=== PATIENT | female | born 1975 | race Caucasian/White ===

== ENCOUNTER 2017-10-30 13:43 | Observation (INO) ==
[2017-10-30] MEDS ORDERED: 0.9 % Sodium Chloride 500 ML IVC ONE (14:04)
[2017-10-30] MEDS ORDERED: *HR* Atropine Sulfate 1 MG/10 ML SYRINGE IVP ONE (14:06)
[2017-10-30 14:31] LABS: Basophils % 0.3 %; Eosinophils # 0.1 K/mcL (0.0-0.6); Eosinophils % 0.6 %; Hematocrit 37.8 % (35.3-44.9); Hemoglobin 11.9 g/dL (11.5-15.4); Immature Granulocytes % 0.5 % (0-4); Lymphocytes # 3.9 K/mcL (0.6-4.6); Lymphocytes % 35.7 %; Mean Corpuscular HGB Conc 31.5 g/dL (31.6-35.5); Mean Corpuscular Hemoglobin 25.5 pg (28.0-33.3); Mean Corpuscular Volume 80.9 fL (83.0-100.0); Mean Platelet Volume 10.3 fL (9.4-12.4); Monocytes # 0.9 K/mcL (0.0-1.3); Monocytes % 8.1 %; Platelet Count 314 K/mcL (140-400); Red Blood Count 4.67 M/mcL (3.82-4.97); Red Cell Distribution Width 19.2 % (11.5-14.5); Segmented Neutrophils % 54.8 %
--- NOTE | 2017-10-30 14:32 | Emergency Department Note ---
Disposition Clinical Impression: Symptomatic bradycardia Disposition: Admitted As Inpatient Condition: Good Chest Pain HPI - General Chief Complaint: ED Chest Pain Stated Complaint: CP x 4 days, Black stool Time Seen by Provider: 10/30/17 13:58 Source: patient Mode of arrival: private vehicle Limitations: no limitations Vital Signs Reviewed: Yes Nursing Notes Reviewed: Yes - History of Present Illness HPI Narrative: 42-year-old female history of fibromyalgia, hypothyroidism who presents to the ER with 4 days of chest pain. Patient states intermittent chest pain the last roughly 25-30 minutes at a time. Describes it as sharp. Also reports some associated shortness of breath and generalized weakness. She states her last 2 bowel movements have been dark. She is not on any antiplatelet or anticoagulation medications. She has not noticed any bleeding from anywhere. She was seen at another ER a few days ago and told to come back if she was worse. She was noted to be bradycardic here. She states that she was told once before when she was in an ER that her heart rate was low. She says she usually runs in the 60s to 70s. No other complaints. Pt complaint: chest pain Onset (ago): day(s) Duration: intermittent Pain Location: left chest Severity scale (1-10): 10 Pain Radiation: none Improves with: nothing Worsens with: nothing Associated symptoms: Reports: nausea, dyspnea Treatments prior to arrival chest pain: none - Related Data On Oral Contraceptives: No Allergies Allergy/AdvReac Type Severity Reaction Status Date / Time oseltamivir [From Tamiflu] Allergy Hallucinati Verified 10/30/17 17:35 ng All systems ED: reviewed and negative except as stated. Cardiovascular: Reports: chest pain Respiratory: Reports: dyspnea Gastrointestinal: Reports: abdominal pain, nausea, constipation. Denies: vomiting, diarrhea Physical Exam - General Limitations: no limitations General appearance: alert, in no apparent distress - Head Head exam: atraumatic, normocephalic - Eye Eye exam: Present: normal appearance - ENT ENT exam: normal exam - Neck Neck exam: Present: normal inspection - Chest Chest inspection: Present: normal inspection, symmetric chest wall rise - Respiratory Respiratory exam: Present: normal lung sounds bilaterally - Cardiovascular Cardiovascular exam: Present: normal rhythm, bradycardia, normal heart sounds - Abdominal Exam Abdominal exam: Present: soft, Non-Tender. Absent: tenderness, distention, rigidity - Extremities Exam Extremities exam: Present: normal inspection, full ROM - Expanded Upper Extremity Exam Shoulder exam: Present: normal inspection, full ROM Arm exam: Present: normal inspection, full ROM Elbow exam: Present: normal inspection, full ROM Forearm/Wrist exam: Present: normal inspection, full ROM Hand exam: Present: normal inspection, full ROM - Expanded Lower Extremity Exam Hip/Pelvis exam: Present: normal inspection, full ROM Upper leg exam: Present: normal inspection, full ROM Knee exam: Present: normal inspection, full ROM Lower leg exam: Present: normal inspection, full ROM Ankle exam: Present: normal inspection, full ROM Foot/toe exam: Present: normal inspection, full ROM - Skin Skin exam: Present: warm, dry Course Course Narrative: Patient seen and examined. Vital signs reviewed. Plan for EKG, chest x-ray, labs, urinalysis. Patient to be given atropine for her bradycardia in lieu of her symptoms. - Reevaluation(s) Reevaluation #1: Patient was given 0.5 mg of atropine for bradycardia. Improved with her rate into the 50s. Reevaluation #2: Discussed findings with patient. Agreeable with admission. Vital Signs Temperature 97.6 F 10/30/17 13:48 Pulse Rate 44 10/30/17 13:48 Respiratory Rate 12 10/30/17 13:48 O2 Sat by Pulse Oximetry 99 10/30/17 13:48 Temperature 97.7 F 10/30/17 19:35 Pulse Rate 49 10/30/17 19:35 Respiratory Rate 18 10/30/17 19:35 Blood Pressure 116/72 10/30/17 19:35 O2 Sat by Pulse Oximetry 99 10/30/17 19:35 Oxygen Delivery Oxygen Delivery Room Air Chest Pain - [facility] Narrative Medical decision making narrative: 42-year-old female presents with chest pain intermittently for 4 days as well as generalized weakness and shortness of breath. She is noted to be bradycardic here with a stable blood pressure. She believes this is only the second and since that she has been told her heart rate is slow. She is sinus bradycardia on EKG. Labs are grossly unremarkable. Patient given atropine for symptomatic bradycardia. Admitted for chest pain as well as symptomatic bradycardia. - Lab Data Lab results reviewed: Yes I reviewed the patient's lab results. Result diagrams: 10/30/17 14:14 10/30/17 14:14 Lab Results 10/30/17 10/30/17 10/30/17 Range/Units 14:04 14:05 14:05 WBC (4.3-11.1) K/mcL RBC (3.82-4.97) M/mcL Hgb (11.5-15.4) g/dL Hct (35.3-44.9) % MCV (83.0-100.0) fL MCH (28.0-33.3) pg MCHC (31.6-35.5) g/dL RDW (11.5-14.5) % Plt Count (140-400) K/mcL MPV (9.4-12.4) fL Immature Gran % (0-4) % Seg Neutrophils % % Lymphocytes % % Monocytes % % Eosinophils % % Basophils % % Neutrophils # (1.6-8.9) K/mcL Lymphocytes # (0.6-4.6) K/mcL Monocytes # (0.0-1.3) K/mcL Eosinophils # (0.0-0.6) K/mcL Basophils # (0.0-0.2) K/mcL PT 10.3 (9.4-12.1) Seconds INR 0.9 APTT 28.0 (26.0-36.0) Seconds Sodium (136-145) mEq/L Potassium (3.5-5.1) mEq/L Chloride (98-107) mEq/L Carbon Dioxide (23-29) mEq/L BUN (6-20) mg/dL Creatinine (0.60-1.20) mg/dL Est GFR ( Amer) (> 60) Est GFR (Non-Af Amer) (> 60) BUN/Creatinine Ratio (6-26) Glucose (70-105) mg/dL Calculated Osmolality (280-300) Calcium (8.6-10.3) mg/dL Phosphorus (2.7-4.5) mg/dL Magnesium (1.6-2.6) mg/dL Total Bilirubin 0.2 L (0.3-1.0) mg/dL Direct Bilirubin 0.1 (0.0-0.2) mg/dL Indirect Bilirubin 0.1 (0.0-1.2) mg/dL AST 10 L (13-39) Units/L ALT 9 (7-52) Units/L Alkaline Phosphatase 65 (34-104) Units/L Troponin I (< 0.04) ng/mL B-Natriuretic Peptide 50 (Less than 100) pg/mL Serum Total Protein 6.1 L (6.4-8.9) g/dL Albumin 3.7 (3.5-5.7) g/dL Globulin 2.4 (2.4-3.5) g/dL Albumin/Globulin Ratio 1.5 (1.1-2.2) TSH 5.157 (0.340-5.600) mcIU/mL Free T4 (0.70-2.00) ng/dl Urine Color (Yellow) Urine Clarity (Clear) Urine pH (5.0-8.0) pH Units Ur Specific Eleele (1.010-1.025) Urine Protein (Neg-Trace) mg/dL Urine Glucose (UA) (Normal) mg/dL Urine Ketones (Negative) mg/dL Urine Blood (Negative) Urine Nitrite (Negative) Urine Bilirubin (Negative) Urine Urobilinogen (Normal) mg/dL Ur Leukocyte Esterase (Negative) Ur Culture Indicated? (NO) Urine Test (Negative) 10/30/17 10/30/17 10/30/17 Range/Units 14:14 14:14 15:46 WBC 10.9 (4.3-11.1) K/mcL RBC 4.67 (3.82-4.97) M/mcL Hgb 11.9 (11.5-15.4) g/dL Hct 37.8 (35.3-44.9) % MCV 80.9 L (83.0-100.0) fL MCH 25.5 L (28.0-33.3) pg MCHC 31.5 L (31.6-35.5) g/dL RDW 19.2 H (11.5-14.5) % Plt Count 314 (140-400) K/mcL MPV 10.3 (9.4-12.4) fL Immature Gran % 0.5 (0-4) % Seg Neutrophils % 54.8 % Lymphocytes % 35.7 % Monocytes % 8.1 % Eosinophils % 0.6 % Basophils % 0.3 % Neutrophils # 6.0 (1.6-8.9) K/mcL Lymphocytes # 3.9 (0.6-4.6) K/mcL Monocytes # 0.9 (0.0-1.3) K/mcL Eosinophils # 0.1 (0.0-0.6) K/mcL Basophils # 0.0 (0.0-0.2) K/mcL PT (9.4-12.1) Seconds INR APTT (26.0-36.0) Seconds Sodium 134 L (136-145) mEq/L Potassium 4.0 (3.5-5.1) mEq/L Chloride 102 (98-107) mEq/L Carbon Dioxide 26 (23-29) mEq/L BUN 12 (6-20) mg/dL Creatinine 0.71 (0.60-1.20) mg/dL Est GFR ( Amer) > 60 (> 60) Est GFR (Non-Af Amer) > 60 (> 60) BUN/Creatinine Ratio 17 (6-26) Glucose 156 H (70-105) mg/dL Calculated Osmolality 281 (280-300) Calcium 9.3 (8.6-10.3) mg/dL Phosphorus 3.0 (2.7-4.5) mg/dL Magnesium 2.0 (1.6-2.6) mg/dL Total Bilirubin (0.3-1.0) mg/dL Direct Bilirubin (0.0-0.2) mg/dL Indirect Bilirubin (0.0-1.2) mg/dL AST (13-39) Units/L ALT (7-52) Units/L Alkaline Phosphatase (34-104) Units/L Troponin I < 0.03 (< 0.04) ng/mL B-Natriuretic Peptide (Less than 100) pg/mL Serum Total Protein (6.4-8.9) g/dL Albumin (3.5-5.7) g/dL Globulin (2.4-3.5) g/dL Albumin/Globulin Ratio (1.1-2.2) TSH (0.340-5.600) mcIU/mL Free T4 0.85 (0.70-2.00) ng/dl Urine Color (Yellow) Urine Clarity (Clear) Urine pH (5.0-8.0) pH Units Ur Specific Eleele (1.010-1.025) Urine Protein (Neg-Trace) mg/dL Urine Glucose (UA) (Normal) mg/dL Urine Ketones (Negative) mg/dL Urine Blood (Negative) Urine Nitrite (Negative) Urine Bilirubin (Negative) Urine Urobilinogen (Normal) mg/dL Ur Leukocyte Esterase (Negative) Ur Culture Indicated? (NO) Urine Test Negative (Negative) 10/30/17 Range/Units 15:52 WBC (4.3-11.1) K/mcL RBC (3.82-4.97) M/mcL Hgb (11.5-15.4) g/dL Hct (35.3-44.9) % MCV (83.0-100.0) fL MCH (28.0-33.3) pg MCHC (31.6-35.5) g/dL RDW (11.5-14.5) % Plt Count (140-400) K/mcL MPV (9.4-12.4) fL Immature Gran % (0-4) % Seg Neutrophils % % Lymphocytes % % Monocytes % % Eosinophils % % Basophils % % Neutrophils # (1.6-8.9) K/mcL Lymphocytes # (0.6-4.6) K/mcL Monocytes # (0.0-1.3) K/mcL Eosinophils # (0.0-0.6) K/mcL Basophils # (0.0-0.2) K/mcL PT (9.4-12.1) Seconds INR APTT (26.0-36.0) Seconds Sodium (136-145) mEq/L Potassium (3.5-5.1) mEq/L Chloride (98-107) mEq/L Carbon Dioxide (23-29) mEq/L BUN (6-20) mg/dL Creatinine (0.60-1.20) mg/dL Est GFR ( Amer) (> 60) Est GFR (Non-Af Amer) (> 60) BUN/Creatinine Ratio (6-26) Glucose (70-105) mg/dL Calculated Osmolality (280-300) Calcium (8.6-10.3) mg/dL Phosphorus (2.7-4.5) mg/dL Magnesium (1.6-2.6) mg/dL Total Bilirubin (0.3-1.0) mg/dL Direct Bilirubin (0.0-0.2) mg/dL Indirect Bilirubin (0.0-1.2) mg/dL AST (13-39) Units/L ALT (7-52) Units/L Alkaline Phosphatase (34-104) Units/L Troponin I (< 0.04) ng/mL B-Natriuretic Peptide (Less than 100) pg/mL Serum Total Protein (6.4-8.9) g/dL Albumin (3.5-5.7) g/dL Globulin (2.4-3.5) g/dL Albumin/Globulin Ratio (1.1-2.2) TSH (0.340-5.600) mcIU/mL Free T4 (0.70-2.00) ng/dl Urine Color Yellow (Yellow) Urine Clarity Clear (Clear) Urine pH 6.5 (5.0-8.0) pH Units Ur Specific Eleele < 1.005 L (1.010-1.025) Urine Protein Negative (Neg-Trace) mg/dL Urine Glucose (UA) Normal (Normal) mg/dL Urine Ketones Negative (Negative) mg/dL Urine Blood Negative (Negative) Urine Nitrite Negative (Negative) Urine Bilirubin Negative (Negative) Urine Urobilinogen Normal (Normal) mg/dL Ur Leukocyte Esterase Negative (Negative) Ur Culture Indicated? NO (NO) Urine Test (Negative) - Radiology Data Radiology results reviewed: Yes I reviewed the patient's radiology results. Chest X-Ray 10/30/17 14:04 IMPRESSION: No acute process. D/ / Jalil Lawrence MD / Jalil Lawrence MD Interpreting Provider: Jalil Lawrence MD - EKG Data EKG attestation: Yes I reviewed and interpreted this EKG. EKG results narrative: EKG demonstrates sinus bradycardia with a rate of 41 beats or minute. Normal axis. Normal intervals. Normal R-wave progression. No gross ST elevations or depressions. No acute ischemic findings. No significant changes from previous EKG dated 11/06/13. Heart Score - Score History: Slightly Suspicious EKG: Normal Age: Less than 45 Risk Factors: No risk factors known Troponin: Less than normal limit HEART Score Total: 0 S.B.A.R. - S.B.A.R. Situation: Demographics, MOA Background: Presenting Complaint, Relevant PMH, Meds, & Allergies Assessment: Vital Signs, Course and respsone to treatment, Exam Concerns, Patient/Family Expectation, Pertinant Lab Results Recommendation: Barrier(s) to disposition, Recommendation based on pending studies, treatments, or consults Katelin Report Given to: Dr. Ludwig Thomason Repor Time: 16:09 Attestation Statement - Attestation Attestation: I examined this patient and my medical decision-making was reviewed with the Resident Physician, Dr. Navarrete. I agree with the documented findings, disposition and treatment plan as described except to the extent set forth below. Pt is a 42 yo wf, hx hypthyroidism, with c/o CP x 4 d, intermittent with SOB and gen weakness. Patient has been having intermittent episodes without aggravating or relieving factors lasting 25-30 minutes sharp in nature. Patient arrives bradycardic and complaining of generalized weakness. I agree with patient's physical exam findings as documented. Patient was bradycardic with a stable blood pressure on arrival Patient was placed on cardiac monitoring pacer pads were placed IV was established and patient was given aspirin and a dose of atropine. Heart rate improved into the high 50s. Patient had cardiac workup initiated all of patient 's labs are within normal limits including TSH troponin chest x-rays unremarkable. Patient will be admitted for chest pain which is resolved at this time as well as symptomatic bradycardia. Case was discussed with hospitalist and sent except patient for further evaluation.
[2017-10-30 14:37] LABS: INR 0.9; Prothrombin Time 10.3 Seconds (9.4-12.1)
[2017-10-30 14:53] LABS: BUN/Creatinine Ratio 17 (6-26); Blood Urea Nitrogen 12 mg/dL (6-20); Calcium 9.3 mg/dL (8.6-10.3); Carbon Dioxide 26 mEq/L (23-29); Chloride 102 mEq/L (98-107); Glucose 156 mg/dL (70-105); Osmolality,Calculated 281 (280-300); Sodium 134 mEq/L (136-145); Troponin I < 0.03 ng/mL (< 0.04); eGFR For Non-African Americans > 60 (> 60)
[2017-10-30 14:54] LABS: Albumin 3.7 g/dL (3.5-5.7); Albumin/Globulin Ratio 1.5 (1.1-2.2); Bilirubin,Direct 0.1 mg/dL (0.0-0.2); Bilirubin,Indirect 0.1 mg/dL (0.0-1.2); Bilirubin,Total 0.2 mg/dL (0.3-1.0); Globulin 2.4 g/dL (2.4-3.5); Total Protein 6.1 g/dL (6.4-8.9)
[2017-10-30 15:06] LABS: Thyroid Stimulating Hormone 5.157 mcIU/mL (0.340-5.600)
[2017-10-30] MEDS ORDERED: Aspirin 325 MG TABLET PO ONE (15:51)
[2017-10-30 16:03] LABS: Bilirubin,Urine Negative (Negative); Blood,Urine Negative (Negative); Clarity,Urine Clear (Clear); Color,Urine Yellow (Yellow); Glucose,Urine (UA) Normal (Normal); Ketones,Urine Negative (Negative); Leukocyte Esterase,Urine Negative (Negative); Nitrite,Urine Negative (Negative); PH,Urine 6.5 pH Units (5.0-8.0); Protein,Urine Negative (Neg-Trace); Specific Gravity,Urine < 1.005 (1.010-1.025); Urobilinogen,Urine Normal (Normal)
[2017-10-30] MEDS ORDERED: Naloxone 0.4 MG/ML INJ IVP PRN ×2 (17:06→17:07)
--- NOTE | 2017-10-30 17:29 | Internal Med History&Physical ---
Date of Encounter: 10/30/17 Time of Encounter: 17:22 Internal Medicine - H&P: HPI Chief complaint: Chest pain, Black stools Admitted From: Home Plans for Post Hospital Care: Home History of present illness: Ms. Colin is a 42 year old female who is a [employer] with a past medical history of bipolar, fibromyalgia, diabetes who presents with chief complaint of chest pain and black stools. Patient states that for the past 5-6 days she has been experiencing chest pain; she describes the pain as actual abdominal pain starting in her upper mid abdomen and radiating up in between her breast. She states that she visited [facility] ER last Saturday who told her to take Motrin and to return to the doctor if symptoms continued or worsened. Patient states that she has been taking Motrin 800 mg frequently since she started developing this pain last Saturday before her 's medication. Over the past 3 days she has developed black tarry stools, however is had no bowel movement today. Patient describes her pain as intermittent and not relieved or exacerbated by any particular thing. She describes radiation up in between her breast and may have had left arm discomfort early last week but not now. She admits to nausea when she eats food and recently had a stomach flu with vomiting however this is improving. In the ER her heart rate was noted to be in the 40s and was given 0.5 mg of atropine to see if this improved her symptoms. Her heart rate mildly responded to this and increased to the 50s however the patient had no change in her pain. Review of documentation reveals bradycardia and abdominal pain as chief complaint of ER visit in 2013 however the patient states that she is unsure how long she has had the bradycardia. Patient denies any pressure sensation or diaphoresis. Patient is on many psychiatric medications as well. Of note the patient is a [employer] and will not accept blood products. Hemoglobin was normal upon presentation as well was initial troponin; EKG revealed sinus bradycardia with no obvious blocks with normal QTC. Patient denies any palpitations, shortness of breath, cough, fevers, headache, blurry vision, double vision, lower extremity swelling. Patient was admitted to observation for chest pain rule out as well as her GI evaluation for suspected peptic ulcer disease with possible upper GI bleed. Past Med Surg Social Fam HX - Past Medical History Medical history: diabetes, fibromyalgia, thyroid disease Additional medical history: RLS, vitamin b12 deficiency, vitamin d deficiency, iron deficiency Psychiatric history: bipolar - Past Surgical History Additional surgical history: knee x3, R knee replacement x 2, hernia, gastric bypass - Social History Smoking Status: Former smoker Alcohol use: rarely Internal Medicine - H&P: Meds 3 Allergy/AdvReac Type Severity Reaction Status Date / Time oseltamivir [From Tamiflu] Allergy Hallucinati Verified 10/30/17 13:47 ng All Systems PM: A 10-system review of systems was performed and is negative for pertinent findings except as documented above in the HPI. Review of systems: 10 point review of systems is obtained and is otherwise negative other than described in history of present illness - Constitutional Vitals: Temp Pulse Resp BP Pulse Ox 97.6 F 49 18 146/80 100 10/30/17 14:30 10/30/17 16:11 10/30/17 16:11 10/30/17 16:11 10/30/17 16:11 Exam: Constitutional: No acute distress, Alert Psych: AAO x 3 HEENT: NCAT, EOMI Neck: supple, no JVD Cardio: bradycardic with regular rhythm, +s1s2, no murmurs/rubs/gallops, no JVD Resp: clear to ascultation bilaterally, no wheezes/rales/ronchi Abd: soft, non tender/non distended, positive bowel sounds, no gaurding/reboud/ ridgitity Extremities: no clubbing/cyanosis/edema appreciated Neuro: no focal deficits appreciated Lymph: no cervical/supraclavicular adenopahty apprecitated Internal Med - H&P Results - Labs CBC & Chem 7: 10/30/17 14:14 10/30/17 14:14 - Assessment and plan (1) Chest pain Current Visit: Yes Status: Acute Assessment and plan: -5-6 day history of chest pain described as sharp; actually states the pain originates in her upper abdomen and radiates up between breasts -no change with activity or rest and intermittent in nature -due to recent heavy motrin use and black stools and location of pain; suspect PUD may be etiology, will start on PPI and consult GI -however will trend 2 additional troponins, first was negative -HEART score of 2 based on risk factors of suspected HTN, DMII, Family history of early CAD; this is indicative of low risk patient currently -ASA given in ED Qualifiers: Chest pain type: other chest pain Qualified Code(s): R07.89 - Other chest pain; R07.8 - Other chest pain (2) Bradycardia Current Visit: Yes Status: Acute Assessment and plan: Sinus bradycardia with HR in 40s -history of bradycardia dating back at least 2 years per ER complaint however documentation not available -on multiple psychiatric medications that may be contributing -given 0.5 of atropine in ED with slight improvement of HR to 50s however no change in symptoms -likely just chronic sinus bradycardia not symptomatic bradycardia -ECGs reviewed in ED, consistent with sinus bradycardia with no obvious blocks or ischemic changes -QTC wnl on all 3 ED ecgs -check magnesium, phos; other lytes wnl -tsh is high normal, will check t4 (3) Black stools Current Visit: Yes Status: Acute Assessment and plan: -3 day history of black tarry stools with recent frequent motrin use -suspect PUD with UGIB -hemoglobin stable and no BM today -trend CBC q8 -[employer] and verified she would not receive blood products ever -Consult GI for eval and possible EGD -Check stool for occult blood -hemodynamically stable -this may be playing role in her chest pain -IV PPI q12 hours for now -Full liquid diet and npo at mightnight incase of EGD -hx of gastric bypass (4) Diabetes Current Visit: Yes Status: Acute Assessment and plan: -recently told her A1C was 6.8 -started on metformin but cannot tolerate due to GI side effects -SSI -Accuchecks Qualifiers: Diabetes mellitus type: type 2 Diabetes mellitus long term care phlebotomist insulin use: without care home use Diabetes mellitus complication status: without complication Qualified Code(s): E11.9 - Type 2 diabetes mellitus without complications (5) HTN (hypertension) Current Visit: Yes Status: Acute Assessment and plan: -No reported hx of htn -pt reports her psychiatrist has told her her bp has been high lately -monitor overnight -start dar inhibitor in am if bp warrants due to diabetes Qualifiers: Hypertension type: essential hypertension Qualified Code(s): I10 - Essential (primary) hypertension (6) Bipolar 1 disorder Current Visit: Yes Status: Acute Assessment and plan: -stable -continue home medications when verified (7) Fibromyalgia Current Visit: Yes Status: Acute Assessment and plan: -continue home medications when verified (8) Hypothyroidism Current Visit: Yes Status: Acute Assessment and plan: -chronic -tsh is high normal, will check t4 -continue synthroid Qualifiers: Hypothyroidism type: acquired Qualified Code(s): E03.9 - Hypothyroidism, unspecified (9) H/O gastric bypass Current Visit: Yes Status: Acute Assessment and plan: hx of gastric bypass with supsequent infection -reports chronic issues with nausea and vomiting -on supplemental vitamins (10) DVT prophylaxis Current Visit: Yes Status: Acute Assessment and plan: SCDs - Time Spent With Patient Total time spent is greater than 50% in coordination of care (as documented) at patient's floor/unit and/or counseling patient: 25 - 35 minutes
[2017-10-30] MEDS: traMADol 50 MG TABLET PO PRN (19:59)
[2017-10-30] MEDS: Pantoprazole 40 MG VIAL IVP SCH (20:00)
[2017-10-30 21:18] LABS: Basophils % 0.2 %; Eosinophils # 0.1 K/mcL (0.0-0.6); Eosinophils % 0.6 %; Hematocrit 34.2 % (35.3-44.9); Hemoglobin 10.9 g/dL (11.5-15.4); Immature Granulocytes % 0.5 % (0-4); Lymphocytes % 45.4 %; Mean Corpuscular HGB Conc 31.9 g/dL (31.6-35.5); Mean Corpuscular Hemoglobin 25.6 pg (28.0-33.3); Mean Corpuscular Volume 80.5 fL (83.0-100.0); Mean Platelet Volume 10.2 fL (9.4-12.4); Monocytes # 0.7 K/mcL (0.0-1.3); Monocytes % 8.1 %; Platelet Count 274 K/mcL (140-400); Red Blood Count 4.25 M/mcL (3.82-4.97); Red Cell Distribution Width 19.2 % (11.5-14.5); Segmented Neutrophils % 45.2 %
[2017-10-30] MEDS ORDERED: traMADol 50 MG TABLET PO ONE (21:20)
[2017-10-30] MEDS: Insulin LISPRO 300 UNITS/3 ML VIAL SQ SCH (21:24)
[2017-10-30] MEDS: Pregabalin 50 MG CAPSULE PO SCH (21:31)
[2017-10-30] MEDS: Melatonin 3 MG TABLET PO SCH (21:31)
[2017-10-30] MEDS: Ondansetron ODT 4 MG TAB.RAPDIS PO PRN (21:46)
[2017-10-31] MEDS ORDERED: GI Cocktail 40 ML EACH PO ONE (00:59)
[2017-10-31] MEDS: traMADol 50 MG TABLET PO PRN ×3 (02:14→16:11)
[2017-10-31 02:40] LABS: BUN/Creatinine Ratio 14 (6-26); Blood Urea Nitrogen 9 mg/dL (6-20); Calcium 8.9 mg/dL (8.6-10.3); Carbon Dioxide 28 mEq/L (23-29); Chloride 104 mEq/L (98-107); Glucose 164 mg/dL (70-105); Osmolality,Calculated 284 (280-300); Potassium 4.3 mEq/L (3.5-5.1); Sodium 136 mEq/L (136-145); Troponin I < 0.03 ng/mL (< 0.04); eGFR For Non-African Americans > 60 (> 60)
[2017-10-31] MEDS: Pantoprazole 40 MG VIAL IVP SCH ×2 (04:54→18:37)
[2017-10-31 04:56] LABS: Basophils % 0.2 %; Eosinophils # 0.1 K/mcL (0.0-0.6); Eosinophils % 0.7 %; Hemoglobin 10.3 g/dL (11.5-15.4); Immature Granulocytes % 0.6 % (0-4); Lymphocytes % 46.2 %; Mean Corpuscular HGB Conc 31.2 g/dL (31.6-35.5); Mean Corpuscular Hemoglobin 25.1 pg (28.0-33.3); Mean Corpuscular Volume 80.5 fL (83.0-100.0); Mean Platelet Volume 10.5 fL (9.4-12.4); Monocytes # 0.7 K/mcL (0.0-1.3); Monocytes % 8.5 %; Neutrophils # 3.8 K/mcL (1.6-8.9); Platelet Count 280 K/mcL (140-400); Red Cell Distribution Width 19.3 % (11.5-14.5); Segmented Neutrophils % 43.8 %
[2017-10-31] MEDS ORDERED: (Vortioxetine Hydrobromide [Trintellix] 20 MG) PO SCH (09:00)
--- NOTE | 2017-10-31 09:16 | Internal Med Progress Note ---
Hospitalist Progress Note - Encounter Date of Encounter: 10/31/17 Time of Encounter: 09:13 - Subjective Interval History: Patient seen and examined. Overnight the patient had continued intermittent upper abdominal and lower chest pain. Patient was given and GI cocktail which improved her symptoms for about 2 hours she said. Patient currently complains of sharp pain in her upper mid abdomen that radiates up in between her breast similar to the past few days. Patient denies any continued melena or hematochezia however she has not had a bowel movement. Patient still with intermittent nausea but no vomiting. Patient's been afebrile. Spoke to GI about possible EDG, they will evaluate the patient today. - Exam Vitals: Temp Pulse Resp BP Pulse Ox 97.9 F 87 15 169/98 95 10/31/17 06:37 10/31/17 06:37 10/31/17 06:37 10/31/17 06:37 10/31/17 06:37 Exam: Constitutional: No acute distress, Alert, membranes moist Psych: AAO x 3 HEENT: NCAT, EOMI Neck: supple, no JVD Cardio: regular rate with regular rhythm, +s1s2, no murmurs/rubs/gallops, no JVD Resp: clear to ascultation bilaterally, no wheezes/rales/ronchi Abd: obese, soft, non tender/non distended, positive bowel sounds, no gaurding/ reboud/ridgitity Extremities: no clubbing/cyanosis/edema appreciated Neuro: no focal deficits appreciated - Assessment and Plan (1) Chest pain Current Visit: Yes Status: Acute Assessment and Plan: -5-6 day history of chest pain described as sharp; actually states the pain originates in her upper abdomen and radiates up between breasts -no change with activity or rest and intermittent in nature -due to recent heavy motrin use and black stools and location of pain; suspect PUD may be etiology -Pain improved for 2 hours with GI cocktail -serial troponins all normal -HEART score of 2 based on risk factors of suspected HTN, DMII, Family history of early CAD; this is indicative of low risk patient currently -ASA given in ED -GI to evaluate the patient today -with continued pain will check lipase today (2) Bradycardia Current Visit: Yes Status: Acute Assessment and Plan: Sinus bradycardia with HR in 40s on admission -HR now in 70s, of note pt did not take her latuda last evening and bradycardia can be associated with this medication; may been psych reevaluation as outpatient to change medications -history of bradycardia dating back at least 2 years per ER complaint however documentation not available -on multiple psychiatric medications that may be contributing-improved with missing latuda for one dose; will not dc as pt has been on medication for along time for bipolar disease -given 0.5 of atropine in ED with slight improvement of HR to 50s however no change in symptoms -likely just chronic sinus bradycardia not symptomatic bradycardia -ECGs reviewed in ED, consistent with sinus bradycardia with no obvious blocks or ischemic changes -QTC wnl on all 3 ED ecgs -all lytes wnl -tsh is high normal, free t4 is WNL (3) Black stools Current Visit: Yes Status: Acute Assessment and Plan: -3 day history of black tarry stools with recent frequent motrin use -suspect PUD with UGIB -hemoglobin stable and no BM today -trend CBC q8; have trended down slightly to 10.3 -[employer] and verified she would not receive blood products ever -GI consult pending for eval for possible EGD; GI aware -Check stool for occult blood; no bm here yet -hemodynamically stable -this may be playing role in her chest pain; especially in light of improvement with GI cocktatil -IV PPI q12 hours for now -currently npo until GI eval -hx of gastric bypass (4) Diabetes Current Visit: Yes Status: Acute Assessment and Plan: -recently told her A1C was 6.8 -started on metformin but cannot tolerate due to GI side effects -SSI -Accuchecks (5) HTN (hypertension) Current Visit: Yes Status: Acute Assessment and Plan: -No reported hx of htn -pt reports her psychiatrist has told her her bp has been high lately -has been consistantly elevated -spoke with pt; okay with starting low dose zestril (6) Bipolar 1 disorder Current Visit: Yes Status: Acute Assessment and Plan: -stable -continue home medications (7) Fibromyalgia Current Visit: Yes Status: Acute Assessment and Plan: -continue home medications; hold elavil (8) Hypothyroidism Current Visit: Yes Status: Acute Assessment and Plan: -chronic -tsh is high normal, free t4 WNL -continue synthroid (9) H/O gastric bypass Current Visit: Yes Status: Acute Assessment and Plan: hx of gastric bypass with supsequent infection -reports chronic issues with nausea and vomiting -on supplemental vitamins (10) DVT prophylaxis Current Visit: Yes Status: Acute Assessment and Plan: SCDs DVT Prophylaxis: SCDs - Summary of Assessment and Plan Summary of Assessment and Plan: await GI eval - Time Spent with Patient Total time spent is greater than 50% in coordination of care (as documented) at patient's floor/unit and/or counseling patient: 25 - 35 minutes Plan of Care Discussed with: patient Internal Medicine: Result - Labs CBC & Chem 7: 10/31/17 01:54 10/31/17 01:54 Labs: Short CBC 10/30/17 10/31/17 Range/Units 20:43 01:54 WBC 8.8 8.7 (4.3-11.1) K/mcL Hgb 10.9 L 10.3 L (11.5-15.4) g/dL Hct 34.2 L 33.0 L (35.3-44.9) % Plt Count 274 280 (140-400) K/mcL Neutrophils # 4.0 3.8 (1.6-8.9) K/mcL BMP 10/31/17 01:54 Sodium 136 Potassium 4.3 Chloride 104 Carbon Dioxide 28 BUN 9 Creatinine 0.65 Glucose 164 H Calcium 8.9 Cardiac Enzymes 10/30/17 10/31/17 Range/Units 20:43 01:54 Troponin I < 0.03 < 0.03 (< 0.04) ng/mL - ABG Interpretation ABG results: PT/INR, D-dimer PT 10.3 Seconds (9.4-12.1) 10/30/17 14:04 Consult Discharge Plan - Plan Referrals: Jennifer Sumner, [employer] [Primary Care Provider] - (1) Chest pain Qualifiers: Chest pain type: other chest pain Qualified Code(s): R07.89 - Other chest pain; R07.8 - Other chest pain (4) Diabetes Qualifiers: Diabetes mellitus type: type 2 Diabetes mellitus senior living insulin use: without senior living use Diabetes mellitus complication status: without complication Qualified Code(s): E11.9 - Type 2 diabetes mellitus without complications (5) HTN (hypertension) Qualifiers: Hypertension type: essential hypertension Qualified Code(s): I10 - Essential (primary) hypertension (8) Hypothyroidism Qualifiers: Hypothyroidism type: acquired Qualified Code(s): E03.9 - Hypothyroidism, unspecified
[2017-10-31 09:43] LABS: Lipase 18 Units/L (11-82)
[2017-10-31] MEDS: Cyanocobalamin (B-12) 1,000 MCG TABLET PO SCH (10:18)
[2017-10-31] MEDS: tiZANidine 4 MG TABLET PO PRN ×3 (10:18→20:58)
[2017-10-31] MEDS: Cholecalciferol (D-3) 1,000 UNIT TABLET PO SCH (10:18)
[2017-10-31] MEDS: Loratadine 10 MG TABLET PO SCH (10:18)
[2017-10-31] MEDS: Pregabalin 50 MG CAPSULE PO SCH ×3 (10:19→20:48)
[2017-10-31] MEDS: Fluticasone Propionate Nasal 50 MCG/SPRAY BOTTLE NS SCH (10:24)
[2017-10-31] MEDS: Insulin LISPRO 300 UNITS/3 ML VIAL SQ SCH ×4 (10:25→21:41)
[2017-10-31] MEDS: Ondansetron ODT 4 MG TAB.RAPDIS PO PRN (10:28)
--- NOTE | 2017-10-31 11:26 | Gastroenterology Consult Note ---
<Jalil Chua - Last Filed: 10/31/17 11:24> Date of Encounter: 10/31/17 Time of Encounter: 10:00 - Assessment and plan (1) Patient is Roman Catholic Current Visit: Yes Status: Acute (2) Black stools Current Visit: Yes Status: Acute Assessment and plan: Three days prior to admission, she developed black tarry stools. Continue twice a day PPI. Plan for EGD today to r/o esophagitis, gastritis, duodenitis, PUD, MW tear, or AVM. Keep NPO for scope. (3) Anemia Current Visit: Yes Status: Acute Assessment and plan: Hgb 11.9 on admission and today Hgb 10.3 with MCV 80.5. Continue to monitor CBC and transfuse PRBC as needed. Plan for EGD today. Qualifiers: Anemia type: unspecified type Qualified Code(s): D64.9 - Anemia, unspecified - Time Spent With Patient Total time spent is greater than 50% in coordination of care (as documented) at patient's floor/unit and/or counseling patient: GI History of Present Illness - Data of Consult Patient: new to practice Consult date: 10/31/17 Requesting Physician: Chyna Joyner - Consult Narrative Reason for consult: Melena History of present illness: Ms. Colin is a 42 year old female who is a Roman Catholic with PMHx of DM , gastric bypass, fibromyalgia, bipolar presented to the ED with chest pain and black stools. Pain starts epigastric area and radiates up in between her breast. She reports she was seen at [facility] ED last Saturday and was told to take Motrin and follow up is symptoms worsened. She has been using Motrin frequently. Three days prior to admission, she developed black tarry stools. She has been started on BID PPI. She denies fever, chills, shortness of breath, nausea, vomiting, hematochezia. Procedures: EGD 02/10/2014 Dr. Presley: Normal esophagus, gastric bypass, and pouch. NSAIDs: Motrin Anticoagulation: None Past Med Surg Social Fam HX - Past Medical History Medical history: diabetes, fibromyalgia, thyroid disease Additional medical history: RLS, vitamin b12 deficiency, vitamin d deficiency, iron deficiency Psychiatric history: bipolar - Past Surgical History Surgical History: cholecystectomy Additional surgical history: knee x3, R knee replacement x 2, hernia, gastric bypass. 2 C SECTIONS - Social History Smoking Status: Former smoker Alcohol use: rarely Drug use: none - Gastrointestinal Gastrointestinal: Present: as per HPI - Constitutional Constitutional: as per HPI - EENT Eyes: as per HPI Ears: Present: as per HPI Nose, mouth and throat: Present: as per HPI - Cardiovascular Cardiovascular ROS: Present: as per HPI - Respiratory Respiratory IM: Present: as per HPI - Genitourinary Genitourinary: Absent: change in color, Urinary frequency - Neurological ROS Neurological GI: Present: as per HPI - Hematologic/Lymphatic Hematologic/Lymphatic pediatric: Present: as per HPI - Musculoskeletal Musculoskeletal ROS GI: Present: as per HPI - Integumentary Integumentary GI: Present: as per HPI - Psychiatric ROS Psychiatric GI: Present: as per HPI - Endocrine Endocrine IM: Present: as per HPI - Constitutional Vitals: Temp Pulse Resp BP Pulse Ox 98 F 58 16 125/86 97 10/31/17 11:15 10/31/17 11:15 10/31/17 11:15 10/31/17 11:15 10/31/17 11:15 General appearance: Present: cooperative, A&O X 3, no acute distress, answers questions appropriately - Head Head exam: Present: atraumatic, normocephalic - Eye Eye exam: Present: normal appearance, sclera anicteric - ENT ENT exam: Present: mucous membranes dry - Neck Neck exam general surgery: Present: normal inspection, trachea midline - Respiratory Respiratory exam: Present: CTAB. Absent: rales, rhonchi - Cardiovascular Cardiovascular exam: Present: RRR, +S1, +S2 - GI/Abdominal GI/Abdominal exam: Present: soft, no peritoneal signs. Absent: distended, firm , guarding, normal bowel sounds, tenderness - Rectal Rectal exam: Present: deferred - Extremities Exam Extremities exam: Present: warm - Neurological Exam Neurological exam: Present: no focal deficits - Psychiatric Psychiatric exam: Present: normal affect, normal mood - Skin Skin exam: Present: dry, intact, normal color, warm Results - Labs CBC & Chem 7: 10/31/17 01:54 10/31/17 01:54 Labs: Last Result Calcium 8.9 mg/dL (8.6-10.3) 09/13/18 01:54 Troponin I < 0.03 ng/mL (< 0.04) 10/31/17 01:54 Entire Visit Hgb 10.3 g/dL (11.5-15.4) L 10/31/17 01:54 Hct 33.0 % (35.3-44.9) L 10/31/17 01:54 PT 10.3 Seconds (9.4-12.1) 10/30/17 14:04 Total Bilirubin 0.2 mg/dL (0.3-1.0) L 10/30/17 14:05 AST 10 Units/L (13-39) L 10/30/17 14:05 ALT 9 Units/L (7-52) 10/30/17 14:05 Lipase 18 Units/L (11-82) 10/31/17 01:54 - ABG ABG results: PT/INR, D-dimer PT 10.3 Seconds (9.4-12.1) 10/30/17 14:04 Consult Discharge Plan - Plan Referrals: Remington Blancas MD [Partnered Physician] - 11/07/17 11:30 am <Laurel Harrell - Last Filed: 10/31/17 18:13> Date of Encounter: 10/31/17 Time of Encounter: 18:00 - Time Spent With Patient Total time spent is greater than 50% in coordination of care (as documented) at patient's floor/unit and/or counseling patient: GI History of Present Illness - Data of Consult Requesting Physician: Chyna Joyner - Consult Narrative History of present illness: Ms. Colin is a 42 year old female - Constitutional Vitals: Temp Pulse Resp BP Pulse Ox 97.7 F 64 16 143/82 98 10/31/17 15:03 10/31/17 17:55 10/31/17 17:55 10/31/17 17:55 10/31/17 17:55 Results - Labs CBC & Chem 7: 10/31/17 01:54 10/31/17 01:54 Labs: Last Result Calcium 8.9 mg/dL (8.6-10.3) 10/31/17 01:54 Troponin I < 0.03 ng/mL (< 0.04) 10/31/17 01:54 Entire Visit Hgb 10.3 g/dL (11.5-15.4) L 10/31/17 01:54 Hct 33.0 % (35.3-44.9) L 10/31/17 01:54 PT 10.3 Seconds (9.4-12.1) 10/30/17 14:04 Total Bilirubin 0.2 mg/dL (0.3-1.0) L 10/30/17 14:05 AST 10 Units/L (13-39) L 10/30/17 14:05 ALT 9 Units/L (7-52) 10/30/17 14:05 Lipase 18 Units/L (11-82) 10/31/17 01:54 - ABG ABG results: PT/INR, D-dimer PT 10.3 Seconds (9.4-12.1) 10/30/17 14:04 - Attending Attestation I have personally performed a face to face evaluation on this patient. I have reviewed and agree with the care plan. History and Exam by me shows: Complaining of abdominal pain and black stool does has a history of constipation. Examination does has upper abdominal tenderness. Assessment : patient 42-year-old female history of gastric bypass now with abdominal pain and black stool. Rec: EGD to rule out gastric/anastomotic ulcer. Recommend: Trulance 3 mg daily as an outpatient for constipation
[2017-10-31] MEDS: (Vortioxetine Hydrobromide [Trintellix] 20 MG) PO SCH (13:19)
--- NOTE | 2017-10-31 15:50 | Electrocardiograph Report ---
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
[2017-10-31] MEDS ORDERED: *HR* Midazolam HCl 5 MG/5 ML VIAL IVP ONE (16:54)
[2017-10-31] MEDS ORDERED: *HR* FentaNYL (PF) 100 MCG/2 ML VIAL ONE (16:54)
[2017-10-31] MEDS ORDERED: Simethicone 40 MG/0.6 ML MLS IR ONE (17:02)
[2017-10-31] MEDS ORDERED: Tetracaine/Benzocaine/Butamben 200MG/SPRAY (100SPY/BOT) MM ONE (17:02)
[2017-10-31] MEDS ORDERED: 0.9 % Sodium Chloride 1,000 ML IVC SCH (17:15)
[2017-10-31] MEDS: Melatonin 3 MG TABLET PO SCH (20:49)
[2017-11-01 04:06] LABS: Basophils % 0.4 %; Eosinophils # 0.1 K/mcL (0.0-0.6); Hematocrit 37.8 % (35.3-44.9); Immature Granulocytes % 0.6 % (0-4); Lymphocytes # 3.2 K/mcL (0.6-4.6); Lymphocytes % 39.3 %; Mean Corpuscular HGB Conc 31.5 g/dL (31.6-35.5); Mean Corpuscular Hemoglobin 24.9 pg (28.0-33.3); Mean Corpuscular Volume 79.2 fL (83.0-100.0); Mean Platelet Volume 9.8 fL (9.4-12.4); Monocytes # 0.8 K/mcL (0.0-1.3); Monocytes % 9.9 %; Platelet Count 314 K/mcL (140-400); Red Blood Count 4.77 M/mcL (3.82-4.97); Segmented Neutrophils % 48.8 %
[2017-11-01 04:10] LABS: Hemoglobin 11.9 g/dL (11.5-15.4)
[2017-11-01 04:28] LABS: BUN/Creatinine Ratio 19 (6-26); Blood Urea Nitrogen 13 mg/dL (6-20); Calcium 9.2 mg/dL (8.6-10.3); Carbon Dioxide 28 mEq/L (23-29); Chloride 102 mEq/L (98-107); Glucose 113 mg/dL (70-105); Magnesium 2.4 mg/dL (1.6-2.6); Osmolality,Calculated 285 (280-300); Phosphorous 4.8 mg/dL (2.7-4.5); Potassium 4.4 mEq/L (3.5-5.1); Sodium 137 mEq/L (136-145); eGFR For Non-African Americans > 60 (> 60)
[2017-11-01] MEDS: Pantoprazole 40 MG VIAL IVP SCH (06:16)
[2017-11-01] MEDS: tiZANidine 4 MG TABLET PO PRN ×2 (09:00→15:35)
[2017-11-01] MEDS: Pregabalin 50 MG CAPSULE PO SCH ×2 (09:01→15:31)
[2017-11-01] MEDS: Loratadine 10 MG TABLET PO SCH (09:01)
[2017-11-01] MEDS: Cholecalciferol (D-3) 1,000 UNIT TABLET PO SCH (09:02)
[2017-11-01] MEDS: Cyanocobalamin (B-12) 1,000 MCG TABLET PO SCH (09:04)
[2017-11-01] MEDS: traMADol 50 MG TABLET PO PRN ×2 (09:08→15:31)
[2017-11-01 11:00] VITALS: BP 109/63
[2017-11-01] MEDS: Insulin LISPRO 300 UNITS/3 ML VIAL SQ SCH ×2 (11:46→13:38)
[2017-11-01] MEDS: (Vortioxetine Hydrobromide [Trintellix] 20 MG) PO SCH (13:36)
[2017-11-01] MEDS: Fluticasone Propionate Nasal 50 MCG/SPRAY BOTTLE NS SCH (13:37)
--- NOTE | 2017-11-01 15:54 | Discharge Summary ---
- NOTES TO OUTPATIENT PROVIDER Notes to Outpatient Provider: Please have the patient follow up with psychiatry to evaluate medications that could cause bradycardia and possibly alter these medications; Latuda has been reported to cause bradycardia; bradycardia improved throughout stay but unsure if her medications are contributing. Pathology from EGD biopsy pending Orders not resulted at time of discharge: Pending orders 10/31/17 18:06 Surgical Pathology [PTH] Routine Date of Encounter: 11/01/17 Time of Encounter: 15:53 - Discharge Diagnosis (1) Abdominal pain Priority: Primary Status: Acute Qualifiers: Abdominal location: epigastric Qualified Code(s): R10.13 - Epigastric pain (2) Chest pain Priority: Secondary Status: Acute Qualifiers: Chest pain type: other chest pain Qualified Code(s): R07.89 - Other chest pain; R07.8 - Other chest pain (3) Bradycardia Priority: Secondary Status: Acute (4) Black stools Priority: Secondary Status: Acute (5) Diabetes Priority: Secondary Status: Acute Qualifiers: Diabetes mellitus type: type 2 Diabetes mellitus snf insulin use: without snf use Diabetes mellitus complication status: without complication Qualified Code(s): E11.9 - Type 2 diabetes mellitus without complications (6) HTN (hypertension) Priority: Secondary Status: Acute Qualifiers: Hypertension type: essential hypertension Qualified Code(s): I10 - Essential (primary) hypertension (7) Bipolar 1 disorder Priority: Secondary Status: Acute (8) Fibromyalgia Priority: Secondary Status: Acute (9) Hypothyroidism Priority: Secondary Status: Acute Qualifiers: Hypothyroidism type: acquired Qualified Code(s): E03.9 - Hypothyroidism, unspecified (10) H/O gastric bypass Priority: Secondary Status: Acute (11) DVT prophylaxis Priority: Secondary Status: Acute Hospital course: Ms. Colin is a 42 year old female who presented with a 5-60 history of lower chest pain. Upon evaluation this turned out to be more upper abdominal pain that radiated up into the chest. The patient reported black stools with a history of Motrin use. The patient hemoglobin did drop slightly and GI was consulted. The patient was not transfused; did not require transfusion and is a Taoist. Due to the location of her pain troponins were trended and were negative. The patient did present with bradycardia which she has a history of prior prior documentation. This appeared to be sinus bradycardia with no blocks and no ischemic changes. Her many psychiatric medications could be contributing to this bradycardia. Latuda specifically has been reported to cause bradycardia. However all her medications were continued and the bradycardia improved throughout her stay. Patient underwent EGD which did not reveal any active bleeding. Due to the patient's constipation GI recommended to start 3 mg daily as an outpatient for constipation and the patient will be discharged on Protonix daily. Lipase was also tried due to her abdominal pain and was normal. Primary care doctor can decide whether or not to continue this after 30 days. Patient also noted to be hypertensive throughout her stay and started on low-dose of lisinopril will get be given a prescription for 2.5 mg of lisinopril daily that can be uptitrated as an outpatient by PCP if needed. Patient did have improvement in her discomfort and suspected recent stomach flu could be contributing, recommend continue supportive care. Patient should follow up with primary care doctor within 1 week. Patient instructed that should her symptoms worsen or fail to continue to improve, she should be evaluated by primary care physician or return to the ER. Patient discharged in stable condition to home on 11/01/2017. She agreeable and all questions answered. Discharge discussed with: patient, family, nurse - Time Spent with Patient Total time spent providing and/or coordinating discharge services: Greater than 30 minutes - Discharge Medications Prescriptions: Lisinopril [Zestril] 2.5 mg PO DAILY 30 Days #30 tablet Lisinopril [Zestril] 2.5 mg PO DAILY 30 Days #30 tablet Pantoprazole Sodium [Protonix] 40 mg PO DAILY 30 Days #30 tablet. Pantoprazole Sodium [Protonix] 40 mg PO DAILY 30 Days #30 tablet. Plecanatide [Trulance] 3 mg PO DAILY 30 Days #30 tablet Plecanatide [Trulance] 3 mg PO DAILY 30 Days #30 tablet Home Medications: Acetaminophen [Non-Aspirin Extra Strength] 1,000 mg PO BID PRN 10/30/17 [History ] Amitriptyline HCl 100 mg PO HS 10/30/17 [History] Cetirizine HCl [All Day Allergy] 10 mg PO DAILY 10/30/17 [History] Cholecalciferol (D-3) [Vitamin D] 1,000 unit PO DAILY 10/30/17 [History] Cyanocobalamin (Vitamin B-12) [Vitamin B12] 1,000 mcg PO DAILY 10/30/17 [History ] Docusate Sodium [Dok] 200 mg PO HS 10/30/17 [History] Ferrous Sulfate [Iron] 325 mg PO DAILY 10/30/17 [History] Fluticasone Propionate Nasal [Flonase] 2 spray NS DAILY 10/30/17 [History] Levothyroxine [Synthroid] 100 mcg PO QAM 10/30/17 [History] Lurasidone HCl [Latuda] 80 mg PO QPM 10/30/17 [History] Melatonin 20 mg PO HS 10/30/17 [History] Montelukast [Singulair] 10 mg PO HS 10/30/17 [History] Nystatin POWDER [Nystop] 1 appl TP TID PRN 10/30/17 [History] Ondansetron HCl [Zofran] 4 mg PO Q8HR PRN 10/30/17 [History] Polyethylene Glycol 3350 [MiraLAX] 17 gm PO DAILY PRN 10/30/17 [History] Prazosin HCl [Minipress] 2 mg PO HS 10/30/17 [History] Pregabalin [Lyrica] 200 mg PO TID 10/30/17 [History] Ropinirole HCl [Requip] 3 mg PO HS 10/30/17 [History] Tizanidine HCl [Zanaflex] 8 mg PO TID PRN 10/30/17 [History] Vortioxetine Hydrobromide [Trintellix] 20 mg PO DAILY 10/30/17 [History] hydrOXYzine HCl [Hydroxyzine HCl] 25 - 50 mg PO Q6-8H PRN 10/30/17 [History] Lisinopril [Zestril] 2.5 mg PO DAILY 30 Days #30 tablet 11/01/17 [Rx] Lisinopril [Zestril] 2.5 mg PO DAILY 30 Days #30 tablet 11/01/17 [Rx] Pantoprazole Sodium [Protonix] 40 mg PO DAILY 30 Days #30 tablet. 11/01/17 [Rx ] Pantoprazole Sodium [Protonix] 40 mg PO DAILY 30 Days #30 tablet. 11/01/17 [Rx ] Plecanatide [Trulance] 3 mg PO DAILY 30 Days #30 tablet 11/01/17 [Rx] Plecanatide [Trulance] 3 mg PO DAILY 30 Days #30 tablet 11/01/17 [Rx] Allergies/Adverse Reactions: 3 Allergy/AdvReac Type Severity Reaction Status Date / Time oseltamivir [From Tamiflu] Allergy Hallucinati Verified 10/30/17 17:35 ng Date of admission: 10/30/17 16:55 Primary care physician: Jennifer Sumner CNP Consults: 10/30/17 17:18 Consult to Gastroenterology [CONS] Routine Consulting Provider: [facility] [place] Reason for Consult: suspected PUD with UGIB, 2 day hx of dark stools with ibuprophen use, jehovas witness Call Completed: No - Constitutional Vitals: Temp Pulse Resp BP Pulse Ox 98 F 67 17 109/63 97 11/01/17 10:57 11/01/17 10:57 11/01/17 10:57 11/01/17 10:57 11/01/17 10:57 Exam: Constitutional: No acute distress, Alert, membranes moist Psych: AAO x 3 HEENT: NCAT Neck: supple Cardio: regular rate with regular rhythm, +s1s2, no murmurs Resp: clear to ascultation bilaterally, no wheezes/rales/ronchi Abd: obese, soft, non tender/non distended, positive bowel sounds, no gaurding/ reboud/ridgitity Extremities: no clubbing/cyanosis/edema appreciated Neuro: no focal deficits appreciated - Patient Status Disposition: Home, Self-Care Condition: Good Functional capacity at discharge: independent ambulation Overall status at discharge: patient is progressing back to baseline - Discharge Instructions Follow Up With: Remington Blancas MD [Partnered Physician] - 11/07/17 11:30 am - Diet and Activity Activity: increase activity as tolerated Diet: advance to your usual diet
== END 2017-11-01 17:07 | disposition home or self-care (01) ==
LOC: EMEROOARM 13:43 → 2NENU 13:43
PROVIDERS: ADMIT Student in an Organized Health Care Education/Training Program; ATTEND Student in an Organized Health Care Education/Training Program
PROC: ENDOEBX (2017-10-31 15:00)

== ENCOUNTER 2018-03-29 16:34 | Inpatient (IN) ==
[2018-03-29] MEDS ORDERED: Ipratropium/Albuterol Neb 3 ML IH PRN (20:50)
[2018-03-29] MEDS ORDERED: Acetaminophen 325 MG TABLET PO PRN (23:44)
[2018-03-29] MEDS ORDERED: Naloxone 0.4 MG/ML INJ IVP PRN (23:44)
[2018-03-29] MEDS ORDERED: GuaiFENesin/Dextromethorphan TABLET PO PRN (23:48)
[2018-03-29] MEDS: Ipratropium/Albuterol Neb 3 ML IH SCH (23:54)
[2018-03-30] MEDS ORDERED: *HR* Dextrose 50 % in Water (Syg) 50 ML SYRINGE IVP PRN (00:06)
[2018-03-30] MEDS ORDERED: Dextrose Gel 15 GM/37.5 ML TUBE PO PRN ×2 (00:06)
[2018-03-30] MEDS ORDERED: D5% in Water 1,000 ML IVC PRN (00:06)
[2018-03-30] MEDS ORDERED: 0.9 % Sodium Chloride 1,000 ML IVC ONE ×2 (00:09→01:26)
[2018-03-30] MEDS: Benzonatate 100 MG CAPSULE PO PRN ×3 (00:18→20:46)
[2018-03-30] MEDS: *HR* OxyCODONE Immed Rel 5 MG TABLET PO PRN ×3 (00:18→20:46)
--- NOTE | 2018-03-30 00:29 | Internal Med History&Physical ---
Date of Encounter: 03/30/18 Time of Encounter: 22:40 Internal Medicine - H&P: HPI Chief complaint: Mycoplasma pneumonia Admitted From: Hospital to Hospital Transfer Plans for Post Hospital Care: Home History of present illness: Ms. Colin is a 42 year old female Patient presented to [facility] from [facility] after being admitted there for shortness of breath, found to have Myc oplasma pneumonia. She initially presented after a four-day history of flulike symptoms as well as headache, cough, fever, chills, shortness of breath, nausea, vomiting and fatigue. She was admitted on March 26, remained inpatient until today, but because of her symptoms not improving, and patient may need pulmonology and GI consults she was transferred out. Patient's initial temperature in the emergency room was 100.3. Patient's initial emergency room laboratory values are as follows: White count 18.8, hemoglobin 11.1, hematocrit 35.3, platelets 301. Sodium 138, potassium 4.1, chloride 103, CO2 20, BUN 10, creatinine 0.91, glucose 194, GFR greater than 60. D-dimer was elevated at 1840. Her lab work remained stable the following day. Pro- calcitonin was 0.12. Influenza A and B were negative. A mycoplasma IgM test was reactive. On the morning of her transfer, patient's white count increased to 19.0, hemoglobin was 9.4. Chest x-ray performed on March 25 showed left upper lobe pneumonia. Her chest CT angiogram performed on March 26 was negative for PE but showed large area of infiltrate/consolidation in left upper lobe and moderate nodular appearing infiltrate in the left lower lobe that could be related to pneumonia but more sinister underlying process could not be excluded, including malignancy. She was started on Rocephin and Zithromax as well as prednisone. Blood cultures were drawn, but no growth at this point. A respiratory culture and Gram stain was performed that demonstrated normal oral mehran moderate gram-positive cocci in pairs and few gram-positive bacilli. Patient also developed abdominal pain but had normal amylase and lipase. Her LFTs showed a slightly elevated ALP, but this was contributed to her postcholecystectomy state as it is nonspecific finding. Amylase was [address] lip[address] was [address] abdomen and pelvis performed on March 28 showed ileus and/or gastroenteritis without bowel obstruction, fatty liver without evidence of biliary obstruction or biliary stones. There was moderate fecal stasis. Again patchy bibasilar bilateral nodular infiltrates were seen. Patient had persistent fluctuating lactic acidosis, most recently 3.1 despite IV fluid hydration which was up from the day previous when her lactic acid was 2.2. I nitial lactate in the emergency room was 2.9. She has a known history of chronic anemia but no evidence of active bleeding. She has a history of chronic pain, hypertension. Upon my evaluation patient states that she is unclear why she was transferred here. She denies nausea and vomiting but has chest pain when she coughs. She has continued right lower quadrant abdominal pain and thinks that she may have pulled a muscle when she was coughing. She also states that she thinks she is constipated and has not had a bowel movement in 2 or 3 days. She has some shortness of breath as well. She is a Anabaptist and therefore declines any blood transfusions but is full code. Past Med Surg Social Fam HX - Past Medical History Medical history: diabetes, fibromyalgia, thyroid disease Additional medical history: RLS, vitamin b12 deficiency, vitamin d deficiency, iron deficiency Psychiatric history: bipolar - Past Surgical History Surgical History: cholecystectomy Additional surgical history: knee x3, R knee replacement x 2, hernia, gastric bypass. 2 C SECTIONS - Social History Smoking Status: Former smoker Smokeless Tobacco Status: No Alcohol use: occasionally Drug use: none - Family History Father Living Status: Age at : 52 Hx Family Cardiac Disorders: Yes (CHF) Hx Family Neurologic Disorders: Yes (Stroke) Hx Family Medical Disorders: Yes (Kidney Failure) Mother Living Status: Hx Family Cancer: Yes (Liver Cancer) Internal Medicine - H&P: Meds Acetaminophen [Non-Aspirin Extra Strength] 1,000 mg PO BID PRN 10/30/17 [History] Amitriptyline HCl 100 mg PO HS 10/30/17 [History] Cetirizine HCl [All Day Allergy] 10 mg PO QAM 10/30/17 [History] Cholecalciferol (D-3) [Vitamin D] 1,000 unit PO DAILY 10/30/17 [History] Cyanocobalamin (Vitamin B-12) [Vitamin B12] 1,000 mcg PO DAILY 10/30/17 [History] Docusate Sodium [Dok] 200 mg PO HS 10/30/17 [History] Ferrous Sulfate [Iron] 325 mg PO DAILY 10/30/17 [History] Fluticasone Propionate Nasal [Flonase] 2 spray NS DAILY 10/30/17 [History] Levothyroxine [Synthroid] 100 mcg PO QAM 10/30/17 [History] Lurasidone HCl [Latuda] 120 mg PO QPM 10/30/17 [History] Melatonin 20 mg PO HS 10/30/17 [History] Montelukast [Singulair] 10 mg PO HS 10/30/17 [History] Nystatin POWDER [Nystop] 1 appl TP TID PRN 10/30/17 [History] Ondansetron HCl [Zofran] 4 mg PO Q8HR PRN 10/30/17 [History] Polyethylene Glycol 3350 [MiraLAX] 17 gm PO DAILY PRN 10/30/17 [History] Prazosin HCl [Minipress] 2 mg PO HS 10/30/17 [History] Pregabalin [Lyrica] 200 mg PO TID 10/30/17 [History] Ropinirole HCl [Requip] 6 mg PO HS 10/30/17 [History] Tizanidine HCl [Zanaflex] 8 mg PO TID PRN 10/30/17 [History] Vortioxetine Hydrobromide [Trintellix] 20 mg PO HS 10/30/17 [History] hydrOXYzine HCl [Hydroxyzine HCl] 25 - 50 mg PO Q6-8H PRN 10/30/17 [History] Lisinopril [Zestril] 2.5 mg PO DAILY 30 Days #30 tablet 11/01/17 [Rx] Lisinopril [Zestril] 2.5 mg PO DAILY 30 Days #30 tablet 11/01/17 [Rx] Pantoprazole Sodium [Protonix] 40 mg PO DAILY 30 Days #30 tablet. 11/01/17 [Rx] Pantoprazole Sodium [Protonix] 40 mg PO DAILY 30 Days #30 tablet. 11/01/17 [Rx] Plecanatide [Trulance] 3 mg PO DAILY 30 Days #30 tablet 11/01/17 [Rx] Plecanatide [Trulance] 3 mg PO DAILY 30 Days #30 tablet 11/01/17 [Rx] BuPROPion [Wellbutrin] 150 mg QAM 03/29/18 [History] clonazePAM [Klonopin] 1 mg PO BID 03/29/18 [History] Allergy/AdvReac Type Severity Reaction Status Date / Time oseltamivir [From Tamiflu] Allergy Hallucinati Verified 10/30/17 17:35 ng All Systems PM: A 10-system review of systems was performed and is negative for pertinent fin dings except as documented above in the HPI. - Constitutional Vitals: Temp Pulse Resp BP Pulse Ox 98.4 F 72 16 146/87 94 03/29/18 23:05 03/29/18 23:05 03/29/18 23:05 03/29/18 23:05 03/29/18 23:05 General appearance: Present: cooperative, mild distress, A&O X 3, pleasant, answers questions appropriately Exam: - - Head Head exam: Present: normal inspection - Eye Eye exam: Present: EOMI, normal appearance - Respiratory Respiratory exam: Present: wheezes. Absent: accessory muscle use, chest wall tenderness, CTAB, rales, respiratory distress, rhonchi - Cardiovascular Cardiovascular exam: Present: RRR. Absent: diastolic murmur, systolic murmur - GI/Abdominal GI/Abdominal exam: Present: normal bowel sounds, soft, tenderness Additional comments: Right lower quadrant and some right upper quadrant tenderness with palpation. Patient has history of gastric bypass and has well-healed scars on her abdomen - Extremities Exam Extremities exam: Present: warm, radial pulses palpable and symmetrical. Absent: calf tenderness, pedal edema, tenderness - Neurological Exam Neurological exam: Present: no focal deficits, strengths equal and symetr throughout. Absent: motor sensory deficit, facial droop, speech deficit - Skin Skin exam: Present: dry, normal color, warm Internal Med - H&P Results - Labs CBC & Chem 7: 03/30/18 00:24 03/30/18 00:24 - Assessment and plan (1) Mycoplasma pneumonia Current Visit: Yes Status: Acute Assessment and plan: As seen on patient's CT read performed at [facility]. Actual imaging not available, will try to have the imaging pushed to our system. Patient was put on the tracks home, azithromycin and prednisone. Blood cultures were drawn but apparently nothing has grown thus far. Patient did however have a positive mycoplasma IgM. Negative influenza. Patient wheezy on exam but no crackles heard. She is on room air and saturating at 97%. She coughed frequently during the exam particularly when taking deep breaths. Upon repeat lab work once patient arrived, patient's lactic acid continues to be elevated at 2.7 and her white count also has increased to 21.6. She did receive 40 mg of prednisone daily while at [facility] which could perhaps explain her white count elevation. Will escalate patient's antibiotics to vancomycin, Levaquin and Zosyn. We will also obtain new blood cultures. Patient did have a sputum culture at [facility] that grew out gram-positive cocci in pairs as well as gram-positive rods. We will also continue IV fluid hydration and trend the patient's lactate. Start Vanco, Levaquin and Zosyn Continue prednisone Continue breathing treatments as needed Obtain new blood cultures Continue cough medicine as needed Consider pulmonology consult for further evaluation of nodular infiltrate, rule out malignancy Oxygen supplementation as needed Qualifiers: Laterality: left Lung location: upper lobe of lung Qualified Code(s): J15.7 - Pneumonia due to Mycoplasma pneumoniae (2) Lactic acidosis Current Visit: Yes Status: Acute Assessment and plan: Patient's most recent lactic acid level was 2.7. Abdominal CT indicates ileus and possible gastroenteritis without obstruction. Patient's room air sats are stable. Patient's other vital signs are within normal limits, she is afebrile and not tachycardic and respiratory rate is 16. Patient's blood pressure also is within normal limits. She does not meet sepsis criteria. Continue IV fluid hydration Repeat lactic acid now Continue to trend lactic acid until back to within normal limits (3) Abdominal pain Current Visit: No Status: Acute Assessment and plan: CT shows gastroenteritis, ileus without bowel obstruction. Also had moderate fecal stasis. She feels constipated as well. Patient did have tenderness with palpation in the right lower quadrant on exam. The appendix did not appear inflamed on CT. Start MiraLAX and Colace Pain management as needed Consider GI and/or surgery consult if not improving. Qualifiers: Abdominal location: epigastric Qualified Code(s): R10.13 - Epigastric pain (4) Anemia Current Visit: No Status: Acute Assessment and plan: Patient has a chronic microcytic anemia. Review of previous labs does not indicate an iron study has been ordered. Unclear patient actually takes iron escoto pplements. Follow-up results of iron study Continue to monitor hemoglobin Qualifiers: Anemia type: unspecified type Qualified Code(s): D64.9 - Anemia, unspecified (5) Diabetes Current Visit: No Status: Acute Assessment and plan: Patient is a opw-[id number]-[id number] diabetic. She had been previously on metformin but has improved and has been taken off this medicine by her primary care doctor. 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 group home use Diabetes mellitus complication status: without complicat ion Qualified Code(s): E11.9 - Type 2 diabetes mellitus without complications (6) H/O gastric bypass Current Visit: No Status: Acute Assessment and plan: Not recent but will continue to monitor (7) Patient is Anabaptist Current Visit: No Status: Acute Assessment and plan: Patient declines blood products (8) DVT prophylaxis Current Visit: No Status: Acute Assessment and plan: Subcutaneous heparin - Time Spent With Patient Total time spent is greater than 50% in coordination of care (as documented) at patient's floor/unit and/or counseling patient: Greater than 35 minutes
[2018-03-30 00:36] LABS: Hematocrit 33.2 % (35.3-44.9); Hemoglobin 10.4 g/dL (11.5-15.4); Mean Corpuscular HGB Conc 31.3 g/dL (31.6-35.5); Mean Corpuscular Hemoglobin 24.4 pg (28.0-33.3); Mean Corpuscular Volume 77.9 fL (83.0-100.0); Platelet Count 348 K/mcL (140-400); Red Blood Count 4.26 M/mcL (3.82-4.97)
[2018-03-30 00:56] LABS: BUN/Creatinine Ratio 15 (6-26); Blood Urea Nitrogen 12 mg/dL (6-20); Calcium 8.8 mg/dL (8.6-10.3); Carbon Dioxide 30 mEq/L (23-29); Chloride 105 mEq/L (98-107); Glucose 189 mg/dL (70-105); Osmolality,Calculated 289 (280-300); Potassium 3.9 mEq/L (3.5-5.1); Sodium 137 mEq/L (136-145); eGFR For Non-African Americans > 60 (> 60)
[2018-03-30 01:06] LABS: % Iron Saturation 5 % (15-50); Iron 20 mcg/dL (50-170); Transferrin 260 mg/dL (203-362)
[2018-03-30 01:24] LABS: Ferritin 35 ng/mL (10-120)
[2018-03-30] MEDS ORDERED: Acetaminophen IV 1,000 MG/100 ML INFUS..BTL IVPB ONE (03:30)
[2018-03-30] MEDS: *HR* Heparin 5,000 UNIT/ML VIAL SQ SCH ×2 (06:08→17:39)
[2018-03-30] MEDS: Ipratropium/Albuterol Neb 3 ML IH SCH ×3 (07:30→22:41)
[2018-03-30] MEDS ORDERED: Aminoglycoside Consult 1 EACH MC ONE (07:42)
[2018-03-30] MEDS: Levofloxacin 750 MG/150 ML 750 MG/150 ML BAG IVPB SCH (08:11)
[2018-03-30] MEDS: BuPROPion XL (24 HR) 150 MG TABLET PO SCH (08:12)
[2018-03-30] MEDS: Pregabalin 50 MG CAPSULE PO SCH ×3 (08:13→20:56)
[2018-03-30] MEDS: Insulin LISPRO 300 UNITS/3 ML VIAL SQ SCH ×4 (08:14→20:43)
--- NOTE | 2018-03-30 08:23 | Event Note ---
Date of Encounter: 03/30/18 Time of Encounter: 08:19 Patient was seen and examined. I agree with the progress note as written by the resident physician. The patient was transferred to us from [facility] due to elevated lactic, leukocytosis, respiratory issues, abdominal pain. Lactic acidosis resolved here on initially was elevated. Apparently she was not improving on prednisone and Zithromax and her antibiotics were for had been broaden here to Zosyn, Zyvox, Levaquin. She tested positive for mycoplasma IgM there. Also had issues with abdominal pain with CT findings showing possible ileus/gastroenteritis without bowel obstruction. There was fatty liver without evidence of biliary obstruction. Moderate fecal stasis was seen. Currently denies any abdominal pain. Afebrile. On room air. GEN: NAD CVS: RRR. S1, S2, No m/r/g RESP: wheezes anterior and posterior ABD: Soft, NT, ND, +BS EXT: No edema. 2+ DP. No rashes NEURO: Nonfocal We will continue to monitor the patient on the current antibiotics but likely start to de-escalate tomorrow. Follow up on the sputum culture from [facility] and adjust antibiotics accordingly Leukocytosis is likely due to the steroids. We will monitor. Switch oral prednisone to IV solu-medrol 60 q6hrs Continue conservative measures for abdominal pain. Continue bowel regimen. Eating regular diet in the room Continue home meds. No need for consultants at this point but we will evaluate on a daily basis to see if she needs to be seen by pulmonary. Repeated chest x-ray of the morning. DVT prophylaxis.
[2018-03-30] MEDS ORDERED: predniSONE 20 MG TABLET PO SCH (09:00)
[2018-03-30] MEDS ORDERED: Acetaminophen 325 MG TABLET PO PRN (09:30)
[2018-03-30] MEDS: clonazePAM 1 MG TABLET PO PRN (09:33)
[2018-03-30] MEDS: Piperacillin/Tazobactam 3.375 GM in 0.9 % Sodium Chloride Mini Bag 100 ML IVPB SCH ×2 (09:35→15:36)
--- NOTE | 2018-03-30 12:06 | Internal Med Progress Note ---
Hospitalist Progress Note - Encounter Date of Encounter: 03/30/18 Time of Encounter: 11:00 - Subjective Interval History: Ms. Colin is a 42F with PMH of DM, thyroid disease, and bipolar. She was transferred from [facility] on 03/29 for no improvement of respiratory symptoms. She was originally admitted to [facility] on 03/26 for a 4 day history of fever, chills, shortness of breath, headache, cough, nausea, vomiting, and fatigue. She was found to have Mycoplasma pneumonia with a reactive IgM. CXR from 03/25 revealed left upper lobe pneumonia. CTA chest on 03/26 was negative for PE, but demonstrated a large area of infiltrate/consolidation in the left upper lobe. At that time she was started on Rocephin, Zithromax and prednisone. Respiratory culture and Gram stain revealed moderate gram positive cocci in pairs and few gram positive bacilli. Pt also began to complain of abdominal pain. CT abdomen and pelvis from 03/28 revealed fecal stasis and re-demonstrated biblasilar nodular infiltrates. Pt seen and examined at bedside today. Pt states she feels "about the same". Admits to continued cough with mild improvement. States she also continues to experience RUQ abdominal pain which is exacerbated by any movement. She states that if she hold really still and doesn't cough, then her abdomen does not hurt. Denies any further fever or chills. Denies chest pain, nausea, vomiting, or urinary symptoms. States she did have 1 small bowel movement yesterday. Her is at bedside and states the patient usually takes Miralax and Metamucil at home to help with baseline constipation. - Exam Vitals: Temp Pulse Resp BP Pulse Ox 97.8 F 79 20 145/84 92 03/30/18 07:21 03/30/18 07:21 03/30/18 07:30 03/30/18 03:15 03/30/18 07:30 Exam: General: obese female in mild distress Head: normocephalic and atraumatic Eyes: PERRL, EOMI, sclera anicteric, conjunctiva pink Neck: supple, trachea midline Lungs: grossly diminished breath sounds with fine expiratory wheezes. mildly labored breathing on room air. no raales or rhonchi Heart: RRR +s1 +s2 No murmurs, clicks, or rubs GI: abdomen soft, non-tender, non-distended. normoactive bowel sounds Extremities: warm, peripheral pulses palpable and symmetrical. no edema, cyanosis, or calf tenderness. Neuro: A&Ox3. no focal deficits. no speech difficulty or abnormality Skin: warm, dry, intact - Assessment and Plan (1) Mycoplasma pneumonia Current Visit: Yes Status: Acute Assessment and Plan: As reported from [facility] - will attempt to obtain imaging for our records Was on Azithromycin and prednisone Negative flu swab Continue Zosyn, Zyvox, and Levaquin at this time. Consider de-escalating tomorrow Transition to IV Solumedrol 60mg q6hr since pt still wheezing and experiencing respiratory difficulty Continued leukocytosis likely related to steroids - continue to monitor Lactic acid normal at 1.4 Continue scheduled and prn nebs Repeat CXR in AM (2) Leukocytosis Current Visit: Yes Status: Acute Assessment and Plan: Elevated this AM at 21.6 Reported WBC from [facility] 18.8 Likely 2/2 steroids with PNA Abx escalated on arrival as above Continue to monitor (3) Abdominal pain Current Visit: Yes Status: Acute Assessment and Plan: CT abdomen/pelvis from [facility] reportedly showed fecal stasis - will try to obtain imaging for our records Pain described Pt states she had a small bowel movement yesterday, but had not had one for 4 days prior States she takes Miralax and Metamucil daily at home Continue home regimen of Miralax and Metamucil Will add Senna Plus (4) Diabetes Current Visit: Yes Status: Chronic Assessment and Plan: Non-insulin dependent diabetic. Reports she was previously on metformin but was discontinued by her PCP and she is now diet controlled ACHS accuchecks Low-dose insulin sliding scale if needed Diabetic diet (5) Bipolar 1 disorder Current Visit: Yes Status: Chronic Assessment and Plan: Continue home meds (6) Patient is Lutheran Current Visit: Yes Status: Chronic Assessment and Plan: Pt declines blood products DVT Prophylaxis: SQ Heparin - Time Spent with Patient Total time spent is greater than 50% in coordination of care (as documented) at patient's floor/unit and/or counseling patient: Internal Medicine: Result - Labs CBC & Chem 7: 03/30/18 00:24 03/30/18 00:24 Labs: Short CBC 03/30/18 Range/Units 00:24 WBC 21.6 H (4.3-11.1) K/mcL Hgb 10.4 L (11.5-15.4) g/dL Hct 33.2 L (35.3-44.9) % Plt Count 348 (140-400) K/mcL [facility] 03/30/18 00:24 Sodium 137 Potassium 3.9 Chloride 105 Carbon Dioxide 30 H BUN 12 Creatinine 0.78 Glucose 189 H Calcium 8.8 Consult Discharge Plan - Plan Referrals: NONE,PCP [Primary Care Provider] - (1) Mycoplasma pneumonia Qualifiers: Laterality: left Lung location: upper lobe of lung Qualified Code(s): J15.7 - Pneumonia due to Mycoplasma pneumoniae (2) Leukocytosis Qualifiers: Leukocytosis type: unspecified Qualified Code(s): D72.829 - Elevated white blood cell count, unspecified (3) Abdominal pain Qualifiers: Abdominal location: upper abdomen, unspecified Qualified Code(s): R10.10 - Upper abdominal pain, unspecified (4) Diabetes Qualifiers: Diabetes mellitus type: type 2 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
[2018-03-30] MEDS: *HR* HYDROcodone/Acet 5/325 mg TABLET PO PRN ×2 (12:44→15:41)
[2018-03-30] MEDS: Psyllium 1 PACKET POWD.PACK PO SCH ×2 (14:06→20:47)
[2018-03-30] MEDS: Sennosides/Docusate Sodium TABLET PO SCH (14:06)
[2018-03-30] MEDS: methylPREDNISolone 125 MG/2 ML VIAL IVP SCH (17:40)
[2018-03-30] MEDS: Ondansetron 4 MG/2 ML VIAL IVP PRN (18:56)
[2018-03-30] MEDS: VORTIOXETINE HYDROBROMIDE 20 MG PO SCH (20:47)
[2018-03-31] MEDS: methylPREDNISolone 125 MG/2 ML VIAL IVP SCH ×4 (00:49→20:15)
[2018-03-31] MEDS: Piperacillin/Tazobactam 3.375 GM in 0.9 % Sodium Chloride Mini Bag 100 ML IVPB SCH ×3 (00:49→16:45)
[2018-03-31] MEDS: Benzonatate 100 MG CAPSULE PO PRN ×3 (00:58→20:13)
[2018-03-31] MEDS: *HR* OxyCODONE Immed Rel 5 MG TABLET PO PRN ×3 (03:24→20:13)
[2018-03-31] MEDS: *HR* Heparin 5,000 UNIT/ML VIAL SQ SCH ×2 (05:29→18:44)
--- NOTE | 2018-03-31 07:41 | Event Note ---
Date of Encounter: 03/31/18 Time of Encounter: 07:38 Patient was seen and examined. I agree with the progress note as written by the resident physician. Feeling better. afebrile. The patient was transferred to us from [facility] due to elevated lactic, leukocytosis, respiratory issues, abdominal pain. Lactic acidosis resolved here but initially was elevated. Apparently she was not improving on prednisone and Zithromax and her antibiotics are broadened here to Zosyn, Zyvox, Levaquin. Has allergy to Vancomycin. She tested positive for mycoplasma IgM there. Also had issues with abdominal pain with CT findings showing possible ileus/gastroenteritis without bowel obstruction. There was fatty liver without evidence of biliary obstruction. Moderate fecal stasis was seen. Currently denies any abdominal pain. Afebrile. On room air. GEN: NAD CVS: RRR. S1, S2, No m/r/g RESP: wheezes anterior and posterior ABD: Soft, NT, ND, +BS EXT: No edema. 2+ DP. No rashes NEURO: Nonfocal follow up on sputum cultures from [facility] today and see if we can change abx accordingly. f/u on CXR this am Leukocytosis is likely due to the steroids. f/u on labs today. Wean down IV steroids to q8hrs Continue conservative measures for abdominal pain. Continue bowel regimen. Tolerating diet Continue home meds. No need for consultants at this point but we will evaluate on a daily basis to see if she needs to be seen by pulmonary. DVT prophylaxis.
[2018-03-31 07:50] LABS: Hematocrit 36.5 % (35.3-44.9); Hemoglobin 11.4 g/dL (11.5-15.4); Mean Corpuscular HGB Conc 31.2 g/dL (31.6-35.5); Mean Corpuscular Hemoglobin 24.2 pg (28.0-33.3); Mean Corpuscular Volume 77.5 fL (83.0-100.0); Mean Platelet Volume 10.6 fL (9.4-12.4); Monocytes # 0.7 K/mcL (0.0-1.3); Nucleated Red Blood Cells 0.3 /100 WBC (0); Platelet Count 380 K/mcL (140-400); Red Blood Count 4.71 M/mcL (3.82-4.97); Red Cell Distribution Width 17.1 % (11.5-14.5)
[2018-03-31] MEDS: Ipratropium/Albuterol Neb 3 ML IH SCH ×3 (07:58→22:15)
[2018-03-31 08:01] LABS: BUN/Creatinine Ratio 19 (6-26); Blood Urea Nitrogen 13 mg/dL (6-20); Carbon Dioxide 32 mEq/L (23-29); Chloride 94 mEq/L (98-107); Glucose 253 mg/dL (70-105); Osmolality,Calculated 285 (280-300); Potassium 4.6 mEq/L (3.5-5.1); Sodium 133 mEq/L (136-145); eGFR For Non-African Americans > 60 (> 60)
[2018-03-31 08:18] LABS: Lymphocytes # 2.8 K/mcL (0.6-4.6); Neutrophils # 13.7 K/mcL (1.6-8.9); Platelet Estimate Normal (Normal)
[2018-03-31] MEDS: BuPROPion XL (24 HR) 150 MG TABLET PO SCH (08:19)
[2018-03-31] MEDS: Pregabalin 50 MG CAPSULE PO SCH ×3 (08:19→20:12)
[2018-03-31] MEDS: *HR* HYDROcodone/Acet 5/325 mg TABLET PO PRN (08:20)
[2018-03-31] MEDS: Sennosides/Docusate Sodium TABLET PO SCH (08:20)
[2018-03-31] MEDS: Levofloxacin 750 MG/150 ML 750 MG/150 ML BAG IVPB SCH (08:23)
[2018-03-31] MEDS: Psyllium 1 PACKET POWD.PACK PO SCH ×3 (08:24→20:14)
[2018-03-31] MEDS: Insulin LISPRO 300 UNITS/3 ML VIAL SQ SCH ×4 (08:39→20:16)
[2018-03-31] MEDS: clonazePAM 1 MG TABLET PO PRN ×2 (08:44→20:14)
[2018-03-31] MEDS: Ondansetron 4 MG/2 ML VIAL IVP PRN (14:05)
[2018-03-31] MEDS ORDERED: MOM Conc 10 ML UD.LIQ PO ONE (15:49)
[2018-03-31] MEDS ORDERED: Doxycycline 100 MG in 0.9 % Sodium Chloride Mini Bag 100 ML IVPB SCH ×2 (18:00→21:00)
--- NOTE | 2018-03-31 18:19 | Internal Med Progress Note ---
Hospitalist Progress Note - Encounter Date of Encounter: 03/31/18 Time of Encounter: 10:08 - Subjective Interval History: Patient feels better than she did yesterday. States that her breathing has improved. She is still complaining of RLQ abdominal pain, which she attributes to coughing. She still has not had a BM since even with her current bow el regimen. She denies any fever, chest pain, SOB, lightheadedness, N/V. - Exam Vitals: Temp Pulse Resp BP Pulse Ox 98.2 F 75 18 151/87 91 03/31/18 14:25 03/31/18 14:25 03/31/18 16:14 03/31/18 14:25 03/31/18 16:14 Exam: General: obese female, no acute distress, sitting comfortably in chair Head: normocephalic, atraumatic Eyes: EOMI, sclera anicteric, conjunctiva clear and without discharge Neck: supple, trachea midline Lungs: Diminished breath sounds bilaterally, no wheezing, rales, or rhonchi noted Heart: RRR, normal S1 and S2, no murmurs GI: abdomen soft, non-tender, non-distended. normoactive bowel sounds Extremities: warm, peripheral pulses palpable and symmetrical. no edema, cyanosis, or calf tenderness. Neuro: A&Ox3. no focal deficits. no speech difficulty or abnormality Skin: warm, dry, intact - Assessment and Plan (1) Mycoplasma pneumonia Current Visit: Yes Status: Acute Assessment and Plan: Positive Mycoplasma IgM CXR at [facility] with LOVELY infiltrate CXR today - left upper lobe infiltrate Negative Flu Negative MRSA swab Blood cxs pending Lactic Acid 1.4 WBC 17.5 today Continue Levaquin Started Doxycycline Discontinued Zyvox and Zosyn Continue COOPER and PRN nebs (2) Leukocytosis Current Visit: Yes Status: Acute Assessment and Plan: Likely secondary to PNA and steroids Downtrending, WBC 17.5 today Will continue to monitor (3) Abdominal pain Current Visit: Yes Status: Acute Assessment and Plan: Continue bowel regimen Added Milk of Mag x 1 dose If not improvement will advance to enema May consider repeat imaging (4) Bipolar 1 disorder Current Visit: Yes Status: Chronic Assessment and Plan: Chronic, stable Patient on multiple psych medications Continue home meds (5) Diabetes Current Visit: Yes Status: Chronic Assessment and Plan: Non-insulin dependent diabetic. Reports she was previously on metformin but was discontinued by her PCP and she is now diet controlled ACHS accuchecks Low-dose insulin sliding scale if needed Diabetic diet (6) Patient is Religious Current Visit: Yes Status: Chronic Assessment and Plan: Patient declines blood products DVT Prophylaxis: SQ Heparin - Time Spent with Patient Total time spent is greater than 50% in coordination of care (as documented) at patient's floor/unit and/or counseling patient: 25 - 35 minutes Plan of Care Discussed with: patient Internal Medicine: Result - Labs CBC & Chem 7: 03/31/18 07:29 03/31/18 07:29 Labs: Short CBC 03/31/18 Range/Units 07:29 WBC 17.5 H (4.3-11.1) K/mcL Hgb 11.4 L (11.5-15.4) g/dL Hct 36.5 (35.3-44.9) % Plt Count 380 (140-400) K/mcL Neutrophils # 13.7 H (1.6-8.9) K/mcL BMP 03/31/18 07:29 Sodium 133 L Potassium 4.6 Chloride 94 L Carbon Dioxide 32 H BUN 13 Creatinine 0.70 Glucose 253 H Calcium 9.0 - Impressions Impressions Chest X-Ray 03/31/18 06:00 IMPRESSION: 1. Left upper lobe pneumonia. Follow-up radiographs in 4-6 weeks are recommended to ensure resolution. D/ / 03/31/2018 11:23:43 Anthony Herrera MD / stuart Interpreting Provider: Anthony Herrera MD Consult Discharge Plan - Plan Referrals: NONE,PCP [Primary Care Provider] - (1) Mycoplasma pneumonia Qualifiers: Laterality: left Lung location: upper lobe of lung Qualified Code(s): J15.7 - Pneumonia due to Mycoplasma pneumoniae (2) Leukocytosis Qualifiers: Leukocytosis type: unspecified Qualified Code(s): D72.829 - Elevated white blood cell count, unspecified (3) Abdominal pain Qualifiers: Abdominal location: upper abdomen, unspecified Qualified Code(s): R10.10 - Upper abdominal pain, unspecified (5) Diabetes Qualifiers: Diabetes mellitus type: type 2 Diabetes mellitus rn long term care insulin use: without rn long term care use Diabetes mellitus complication status: without complication Qualified Code(s): E11.9 - Type 2 diabetes mellitus without complications
[2018-03-31] MEDS: VORTIOXETINE HYDROBROMIDE 20 MG PO SCH (20:16)
[2018-04-01] MEDS: Piperacillin/Tazobactam 3.375 GM in 0.9 % Sodium Chloride Mini Bag 100 ML IVPB SCH ×2 (00:57→08:42)
[2018-04-01] MEDS: *HR* OxyCODONE Immed Rel 5 MG TABLET PO PRN ×3 (04:41→20:52)
[2018-04-01] MEDS: *HR* Heparin 5,000 UNIT/ML VIAL SQ SCH ×2 (05:33→18:18)
[2018-04-01] MEDS: methylPREDNISolone 125 MG/2 ML VIAL IVP SCH ×3 (05:34→20:43)
[2018-04-01 07:18] LABS: Hematocrit 34.1 % (35.3-44.9); Hemoglobin 10.5 g/dL (11.5-15.4); Mean Corpuscular HGB Conc 30.8 g/dL (31.6-35.5); Mean Corpuscular Hemoglobin 24.1 pg (28.0-33.3); Mean Corpuscular Volume 78.4 fL (83.0-100.0); Mean Platelet Volume 10.3 fL (9.4-12.4); Monocytes # 1.8 K/mcL (0.0-1.3); Nucleated Red Blood Cells 0.2 /100 WBC (0); Platelet Count 392 K/mcL (140-400); Red Blood Count 4.35 M/mcL (3.82-4.97); Red Cell Distribution Width 17.3 % (11.5-14.5)
[2018-04-01] MEDS: Ipratropium/Albuterol Neb 3 ML IH SCH ×3 (07:32→22:14)
[2018-04-01 07:37] LABS: BUN/Creatinine Ratio 23 (6-26); Blood Urea Nitrogen 17 mg/dL (6-20); Calcium 8.8 mg/dL (8.6-10.3); Carbon Dioxide 32 mEq/L (23-29); Chloride 95 mEq/L (98-107); Glucose 253 mg/dL (70-105); Osmolality,Calculated 292 (280-300); Potassium 4.4 mEq/L (3.5-5.1); Sodium 136 mEq/L (136-145); eGFR For Non-African Americans > 60 (> 60)
[2018-04-01 08:41] LABS: Lymphocytes # 3.5 K/mcL (0.6-4.6); Neutrophils # 16.8 K/mcL (1.6-8.9); Platelet Estimate Normal (Normal)
[2018-04-01] MEDS: Psyllium 1 PACKET POWD.PACK PO SCH ×3 (08:42→20:43)
[2018-04-01] MEDS: Sennosides/Docusate Sodium TABLET PO SCH (08:43)
[2018-04-01] MEDS: Levofloxacin 750 MG/150 ML 750 MG/150 ML BAG IVPB SCH (08:43)
[2018-04-01] MEDS: Benzonatate 100 MG CAPSULE PO PRN ×2 (08:43→20:52)
[2018-04-01] MEDS: BuPROPion XL (24 HR) 150 MG TABLET PO SCH (08:43)
[2018-04-01] MEDS: Pregabalin 50 MG CAPSULE PO SCH ×3 (08:44→20:42)
[2018-04-01] MEDS: Insulin LISPRO 300 UNITS/3 ML VIAL SQ SCH ×3 (08:50→18:24)
[2018-04-01] MEDS: clonazePAM 1 MG TABLET PO PRN ×2 (08:58→20:53)
--- NOTE | 2018-04-01 10:23 | Event Note ---
Date of Encounter: 04/01/18 Time of Encounter: 10:18 Patient was seen and examined. I agree with the progress note as written by the resident physician. Still short of breath. Gets as low as 81% O2 sats while laying inbed. Afebrile. CXR showed LOVELY pna. WBC trended up but on IV steroids. The patient was transferred to us from [facility] due to elevated lactic, leukocytosis, respiratory issues, abdominal pain. Lactic acidosis resolved here but initially was elevated. Apparently she was not improving on prednisone and Zithromax and her antibiotics are broadened here to Zosyn, Zyvox, Levaquin. Yesterday we stopped zyvox as MRSA swab was neg. Has allergy to Vancomycin. She tested positive for mycoplasma IgM there. Also had issues with abdominal pain with CT findings showing possible ileus/gastroenteritis without bowel obstruction. There was fatty liver without evidence of biliary obstruction. Moderate fecal stasis was seen. Currently denies any abdominal pain. Afebrile. On room air. GEN: NAD CVS: RRR. S1, S2, No m/r/g RESP: wheezes anterior and posterior ABD: Soft, lower abd tenderness, ND, +BS EXT: No edema. 2+ DP. No rashes NEURO: Nonfocal still dont have putum cultures from [facility]. Will try to get Can stop zosyn and keep on levaquin c/s pulm Leukocytosis is likely due to the steroids. c/w IV steroids to q8hrs No BM yet here. Has abd tenderness. Will get a CT abd/pelvis Continue conservative measures for abdominal pain. Continue bowel regimen. Tolerating diet Continue home meds. DVT prophylaxis.
[2018-04-01] MEDS ORDERED: Isovue-370 500 ML BOTTLE IVP ONE (11:24)
--- NOTE | 2018-04-01 13:55 | Pulmonology Consult Note ---
<Bg Mchugh - Last Filed: 04/01/18 18:06> Date of Encounter: 04/01/18 Time of Encounter: 14:02 Assessment and Plan (1) Mycoplasma pneumonia Current Visit: Yes Status: Acute This is a 42-year-old female with past medical history significant for diabetes, thyroid disease, fibromyalgia, Bipolar Disorder who presents with diagnosis of mycoplasma pneumonia from [facility]. Patient initially presented to [facility] with 4 days of shortness of breath, flulike symptoms including headache, cough, fevers/chills, nausea/vomiting, fatigue. + Mycoplasma IgM at [facility] CXR (03/25/18): Left upper lobe pneumonia CT angiogram (03/26/18): Negative for PE, but showed large area of infiltrate/consolidation in left upper lobe, and moderate nodular appearing infiltrate in left lower lobecould be related to pneumonia but underlying process cannot be excluded, including malignancy Blood Cx: Pending Nasal MRSA: Negative CXR (03/31/18): Left Upper Lobe Pneumonia WBC = 22.1 this am; pt remains afebrile PLAN: Pt being treated for mycoplasma pneumonia given reactive mycoplasma IgM result at [facility]; persistently has symptoms. S/p multiple antibiotics including rocephin, zithromax, zyvox, zoysn. Pt feeling better, but continues to have productive cough - Cont with doxycycline 1st line treatment for Mycoplasma Pneumonia in hospitalized patients - cont treatment for total of 10-14 days - Cont solumedrol 60mg q8h -- wean as tolerated -- taper 10mg every 3 days; leukocytosis likely secondary to steroids, given patient is afebrile and clinically notes she is improving - Cont scheduled duonebs q4h - Cont supplemental O2; monitor O2 sat and wean as tolerated; titrate to keep O2 sat > 88% - Pt likely has component of Asthma/COPD/ JANICE/ Obesity Hypoventilation given smoking history and body habitus; consider for outpatient PFTs, sleep study - BIPAP QHS - Follow up blood cultures - Given duration of symptoms, may consider bronchoscopy to evaluate further without improvement on current abx regimen - Follow up outpatient pulmonology History of Present Illness Consult date: 04/01/18 Requesting physician: Vickie Donovan Reason for consult: pneumonia Chief complaint: SOB History of present illness: This is a 42-year-old female with past medical history significant for diabetes, thyroid disease, fibromyalgia, Bipolar Disorder who presents with diagnosis of mycoplasma pneumonia from [facility]. Patient initially presented to [facility] with 4 days of shortness of breath, flulike symptoms including headache, cough, fevers/chills, nausea/vomiting, fatigue. Patient's initial temperature = 100.3 at time of presentation. Additionally, leukocytosis = 18.8, but otherwise normal lab work. Influenza A and B swabs were negative. However a mycoplasma IgM test was reactive. Initially managed with Rocephin and Zithromax, as well as prednisone. Blood cultures had no growth to date. However, sputum culture grew normal oral mehran, moderate gram- positive cocci in pairs, and a few gram-positive bacilli. CXR (03/25/18): Left upper lobe pneumonia CT angiogram (03/26/18): Negative for PE, but showed large area of infiltrate/consolidation in left upper lobe, and moderate nodular appearing infiltrate in left lower lobecould be related to pneumonia but underlying process cannot be excluded, including malignancy Given patient's lack of improvement, patient was transferred from [facility] to [facility] due to no improvement in respiratory symptoms. While admitted here, pt cont to have SOB and leukocytosis, though patient has remained afebrile. MRSA swab negative, and previously flu swabs negative as well. CXR suggestive of L upper lobe pneumonia. S/p multiple antibiotics including rocephin, zithromax, zyvox, and zosyn. Currently managed with Levaquin and Doxycycline. Blood Cx: Pending Nasal MRSA: Negative CXR (03/31/18): Left Upper Lobe Pneumonia Pulmonary consulted for further management of Mycoplasma Pneumonia. Pt seen and examined resting comfortably at bedside in no acute distress. Vitals hemodynamically stable. O2 sats appropriate on 2L via NC. Pt remains afebrile with persistently elevated white count. Otherwise, notes cough, chest congestion, fatigue, nausea, but denies fevers/chills, headache, sinus congestion, chest pain, wheezing, vomiting, diarrhea, dysuria. Has not had bowel movement for nearly a week. Notes she is a former smoker, but does not smoke anymore. Has a history of childhood asthma, but no recent diagnosis of asthma or COPD. States he says she snores at night, and she endorses daytime sleepiness, but has never been diagnosed with sleep apnea and does not use CPAP. Past Med Surg Social Fam HX - Past Medical History Attestation: Yes The following information was validated with the patient. Source: patient, old records reviewed Medical history: diabetes, fibromyalgia, thyroid disease Additional medical history: RLS, vitamin b12 deficiency, vitamin d deficiency, iron deficiency Psychiatric history: bipolar - Past Surgical History Surgical History: cholecystectomy Additional surgical history: knee x3, R knee replacement x 2, hernia, gastric bypass. 2 C SECTIONS - Social History Smoking Status: Former smoker Smokeless Tobacco Status: No Alcohol use: occasionally Drug use: none - Family History Father Living Status: Age at : 52 Hx Family Cardiac Disorders: Yes (CHF) Hx Family Neurologic Disorders: Yes (Stroke) Hx Family Medical Disorders: Yes (Kidney Failure) Mother Living Status: Hx Family Cancer: Yes (Liver Cancer) Medications and Allergies RX: Acetaminophen [Non-Aspirin Extra Strength] 1,000 mg PO BID PRN 10/30/17 [History] RX: Cetirizine HCl [All Day Allergy] 10 mg PO QAM 10/30/17 [History] RX: Cyanocobalamin (Vitamin B-12) [Vitamin B12] 1,000 mcg PO DAILY 10/30/17 [History] RX: Fluticasone Propionate Nasal [Flonase] 2 spray NS DAILY PRN 10/30/17 [History] RX: Levothyroxine [Synthroid] 100 mcg PO QAM 10/30/17 [History] RX: Lurasidone HCl [Latuda] 120 mg PO QPM 10/30/17 [History] RX: Melatonin 20 mg PO HS 10/30/17 [History] RX: Montelukast [Singulair] 10 mg PO HS 10/30/17 [History] RX: Nystatin POWDER [Nystop] 1 appl TP TID PRN 10/30/17 [History] RX: Ondansetron HCl [Zofran] 4 mg PO Q8HR PRN 10/30/17 [History] RX: Polyethylene Glycol 3350 [MiraLAX] 17 gm PO DAILY PRN 10/30/17 [History] RX: Pregabalin [Lyrica] 200 mg PO TID 10/30/17 [History] RX: Ropinirole HCl [Requip] 6 mg PO HS 10/30/17 [History] RX: Tizanidine HCl [Zanaflex] 4 mg PO TID PRN 10/30/17 [History] RX: Vortioxetine Hydrobromide [Trintellix] 20 mg PO HS 10/30/17 [History] Pantoprazole Sodium [Protonix] 40 mg PO DAILY 30 Days #30 tablet. 11/01/17 [Rx] RX: Lisinopril [Zestril] 2.5 mg PO DAILY 30 Days #30 tablet 11/01/17 [Rx] clonazePAM [Klonopin] 1 mg PO BID 03/29/18 [History] Amitriptyline [Elavil] 50 mg PO HS 03/31/18 [History] BuPROPion XL (24 HR) [Wellbutrin XL] 150 mg PO DAILY 03/31/18 [History] Cholecalciferol (Vitamin D3) [Vitamin D3] 10,000 unit PO DAILY 03/31/18 [History] raNITIdine HCl [Zantac] 150 mg PO DAILY 03/31/18 [History] Allergy/AdvReac Type Severity Reaction Status Date / Time vancomycin AdvReac Unknown Kidney Verified 03/30/18 02:26 Failure oseltamivir [From Tamiflu] AdvReac Hallucinati Verified 03/31/18 13:45 ng All Systems: The remainder of the systems were reviewed and are negative - Constitutional Constitutional: fatigue, snoring, weakness, no anorexia, no chills, no fever(s), no headache(s), no lethargy - EENT Eyes: no loss of vision Ears: no decreased hearing Nose, mouth and throat: dizziness, no headache(s), no nasal congestion, no post-nasal drip, no sinus pressure - Cardiovascular Cardiovascular: dyspnea on exertion, lightheadedness, no chest pain, no chest pain at rest, no chest pain with activity, no palpitations - Respiratory Respiratory: cough, dyspnea, dyspnea on exertion, wheezing, snoring, chest congestion, no hemoptysis, no stridor - Gastrointestinal Gastrointestinal: abdominal pain, nausea, no diarrhea, no loose stools, no vomiting - Genitourinary Genitourinary: no dysuria - Musculoskeletal Musculoskeletal: weakness, no back pain - Neurological Neurological: weakness, no confusion, no dizziness, no headache(s) Physical Examination Vital Signs: Vital Signs, Last 4 Hours Temp Pulse Resp BP Pulse Ox 04/01/18 10:26 98.1 F 92 18 153/89 92 General appearance: no acute distress, alert Eyes: nonicteric ENT: oropharynx moist Neck: supple Effort: normal Auscultation: bilateral: wheezes (B/L wheezing; no rales, crackles, rhonchi; peristent dry cough with taking deep breath) Cardiovascular: regular rate and rhythm Gastrointestinal: normoactive bowel sounds, soft, non-tender, non-distended Extremities: no edema normal mental status, non-focal exam, pupils equal and round, CN II-XII normal mood appropriate, affect normal Results - Laboratory Findings CBC and BMP: 04/01/18 06:39 04/01/18 06:39 Abnormal lab findings: Abnormal lab results WBC 22.1 K/mcL (4.3-11.1) H 04/01/18 06:39 Hgb 10.5 g/dL (11.5-15.4) L 04/01/18 06:39 Hct 34.1 % (35.3-44.9) L 04/01/18 06:39 MCV 78.4 fL (83.0-100.0) L 04/01/18 06:39 MCH 24.1 pg (28.0-33.3) L 04/01/18 06:39 MCHC 30.8 g/dL (31.6-35.5) L 04/01/18 06:39 RDW 17.3 % (11.5-14.5) H 04/01/18 06:39 Band Neutrophils % 8.0 % (0-4) H 04/01/18 06:39 Myelocytes % 2.0 % (0) H 03/31/18 07:29 Neutrophils # 16.8 K/mcL (1.6-8.9) H 04/01/18 06:39 Monocytes # 1.8 K/mcL (0.0-1.3) H 04/01/18 06:39 Nucleated RBCs/100 WBC 0.2 /100 WBC (0) H 04/01/18 06:39 Chloride 95 mEq/L (98-107) L 04/01/18 06:39 Carbon Dioxide 32 mEq/L (23-29) H 04/01/18 06:39 Glucose 253 mg/dL (70-105) H 04/01/18 06:39 POC Glucose 155 mg/dL (70-99) H 03/31/18 19:54 Iron 20 mcg/dL (50-170) L 03/30/18 00:24 % Saturation 5 % (15-50) L 03/30/18 00:24 - Clinical Findings Intake & Output: Intake & Output 03/31/18 04/01/18 04/01/18 23:59 07:59 15:59 Intake Total 1160 / 1160 170 / 170 120 / 120 Output Total 500 / 500 0 / 0 1025 / 1025 Balance 660 / 660 170 / 170 -905 / -905 Weight 155.4 kg Consult Discharge Plan - Plan Referrals: Jennifer Sumner CNP [Advanced Practice Nurse] - <Bob Jiménez - Last Filed: 04/01/18 21:49> Date of Encounter: 04/01/18 All Systems: The remainder of the systems were reviewed and are negative Physical Examination Vital Signs: Vital Signs, Last 4 Hours Temp Pulse Resp BP Pulse Ox 04/01/18 18:45 98.1 F 91 16 146/86 94 Results - Laboratory Findings CBC and BMP: 04/01/18 06:39 04/01/18 06:39 Abnormal lab findings: Abnormal lab results WBC 22.1 K/mcL (4.3-11.1) H 04/01/18 06:39 Hgb 10.5 g/dL (11.5-15.4) L 04/01/18 06:39 Hct 34.1 % (35.3-44.9) L 04/01/18 06:39 MCV 78.4 fL (83.0-100.0) L 04/01/18 06:39 MCH 24.1 pg (28.0-33.3) L 04/01/18 06:39 MCHC 30.8 g/dL (31.6-35.5) L 04/01/18 06:39 RDW 17.3 % (11.5-14.5) H 04/01/18 06:39 Band Neutrophils % 8.0 % (0-4) H 04/01/18 06:39 Myelocytes % 2.0 % (0) H 03/31/18 07:29 Neutrophils # 16.8 K/mcL (1.6-8.9) H 04/01/18 06:39 Monocytes # 1.8 K/mcL (0.0-1.3) H 04/01/18 06:39 Nucleated RBCs/100 WBC 0.2 /100 WBC (0) H 04/01/18 06:39 Chloride 95 mEq/L (98-107) L 04/01/18 06:39 Carbon Dioxide 32 mEq/L (23-29) H 04/01/18 06:39 Glucose 253 mg/dL (70-105) H 04/01/18 06:39 POC Glucose 155 mg/dL (70-99) H 03/31/18 19:54 Iron 20 mcg/dL (50-170) L 03/30/18 00:24 % Saturation 5 % (15-50) L 03/30/18 00:24 - Clinical Findings Intake & Output: Intake & Output 04/01/18 04/01/18 04/01/18 07:59 15:59 23:59 Intake Total 170 / 170 370 / 370 100 / 100 Output Total 0 / 0 2225 / 2225 900 / 900 Balance 170 / 170 -1855 / -1855 -800 / -800 Weight 155.4 kg - Attending Attestation I examined this patient and my medical decision-making was reviewed with the Resident Physician. I agree with the documented findings, disposition and treatment plan as described except to the extent set forth below. Patient seen and examined. Labs, radiology, chart personally reviewed. 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 There is no need for bronchoscopy since clinically patient is slowly improving. From pulm onary standpoint she can be discharged home on taper doxycycline or Levaquin for next 10 days and then follow-up chest x-ray as outpatient in about 6-8 weeks. Evaluation for oxygen need before discharge with 6 minute walk is recommended. Thank you for consultation and please call for any questions. Cardiovascular: stable
[2018-04-01] MEDS: Loratadine 10 MG TABLET PO SCH (15:01)
[2018-04-01] MEDS: Doxycycline 100 MG in 0.9 % Sodium Chloride Mini Bag 100 ML IVPB SCH (15:02)
--- NOTE | 2018-04-01 17:43 | Internal Med Progress Note ---
Hospitalist Progress Note - Encounter Date of Encounter: 04/01/18 Time of Encounter: 10:20 - Subjective Interval History: Patient feels better than she did yesterday. States that her breathing has improved. She is still complaining of RLQ abdominal pain, which she attributes to coughing. She still has not had a BM since even with her current bow el regimen. She denies any fever, chest pain, SOB, lightheadedness, N/V. - Exam Vitals: Temp Pulse Resp BP Pulse Ox 98.2 F 75 18 151/96 93 04/01/18 14:42 04/01/18 14:42 04/01/18 14:42 04/01/18 14:42 04/01/18 14:42 Exam: General: obese female, no acute distress, lying comfortably in bed Head: normocephalic, atraumatic Eyes: EOMI, sclera anicteric, conjunctiva clear and without discharge Neck: supple, trachea midline Lungs: Diminished breath sounds bilaterally, no wheezing, rales, or rhonchi noted Heart: RRR, normal S1 and S2, no murmurs GI: abdomen soft, non-tender, non-distended. normoactive bowel sounds Extremities: no edema, cyanosis, or calf tenderness. Neuro: A&Ox3. no focal deficits. no speech difficulty or abnormality Skin: warm, dry, intact - Assessment and Plan (1) Mycoplasma pneumonia Current Visit: Yes Status: Acute Assessment and Plan: Positive Mycoplasma IgM CXR at [facility] with LOVELY infiltrate CXR 03/31 - left upper lobe infiltrate Negative Flu Negative MRSA swab Blood cxs pending Lactic Acid 1.4 WBC 17.5 to 22.1 today, likely d/t steroids Pulm consulted, appreciate recommendations Continue Levaquin Continue Doxycycline Continue COOPER and PRN nebs, IV steroids (2) Leukocytosis Current Visit: Yes Status: Acute Assessment and Plan: Likely secondary to PNA and steroids WBC 17.5 to 22.1 today Will continue to monitor (3) Abdominal pain Current Visit: Yes Status: Acute Assessment and Plan: Repeat abd/pelvis CT 04/01- No acute findings. No SBO. Per my review, large stool burden Patient still has not had a BM. No pain on exam, just with coughing and movement Continue bowel regimen Will order Enema x 1 (4) Bipolar 1 disorder Current Visit: Yes Status: Chronic Assessment and Plan: Chronic, stable Patient on multiple psych medications Continue home meds (5) Diabetes Current Visit: Yes Status: Chronic Assessment and Plan: Non-insulin dependent diabetic. Reports she was previously on metformin but was discontinued by her PCP and she is now diet controlled ACHS accuchecks Increased to mod dose SSI Diabetic diet No A1C since 2014, will check on morning labs (6) Patient is Christian Current Visit: Yes Status: Chronic Assessment and Plan: Patient declines blood products DVT Prophylaxis: SQ Heparin - Time Spent with Patient Total time spent is greater than 50% in coordination of care (as documented) at patient's floor/unit and/or counseling patient: 25 - 35 minutes Plan of Care Discussed with: patient Internal Medicine: Result - Labs CBC & Chem 7: 04/01/18 06:39 04/01/18 06:39 Labs: Short CBC 04/01/18 Range/Units 06:39 WBC 22.1 H (4.3-11.1) K/mcL Hgb 10.5 L (11.5-15.4) g/dL Hct 34.1 L (35.3-44.9) % Plt Count 392 (140-400) K/mcL Neutrophils # 16.8 H (1.6-8.9) K/mcL BMP 04/01/18 06:39 Sodium 136 Potassium 4.4 Chloride 95 L Carbon Dioxide 32 H BUN 17 Creatinine 0.74 Glucose 253 H Calcium 8.8 - Impressions Impressions Abdomen/Pelvis CT 04/01/18 14:00 IMPRESSION: 1. No significant findings in the abdomen or pelvis to correlate to the provided clinical history of constipation. 2. Postsurgical change of Vicente-en-Y gastric bypass. No post surgical abnormalities. D/ / Patric Grewal MD / Patric Grewal MD Interpreting Provider: Patric Grewal MD Consult Discharge Plan - Plan Referrals: Jennifer Sumner, TRAVEL REGISTERED NURSE ONCOLOGY [Advanced Practice Nurse] - (1) Mycoplasma pneumonia Qualifiers: Laterality: left Lung location: upper lobe of lung Qualified Code(s): J15.7 - Pneumonia due to Mycoplasma pneumoniae (2) Leukocytosis Qualifiers: Leukocytosis type: unspecified Qualified Code(s): D72.829 - Elevated white blood cell count, unspecified (3) Abdominal pain Qualifiers: Abdominal location: upper abdomen, unspecified Qualified Code(s): R10.10 - Upper abdominal pain, unspecified (5) Diabetes Qualifiers: Diabetes mellitus type: type 2 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
[2018-04-01] MEDS ORDERED: Milk and Molasses Enema 200 ML RC ONE (17:51)
[2018-04-01] MEDS: Ondansetron 4 MG/2 ML VIAL IVP PRN (18:53)
[2018-04-01] MEDS ORDERED: Insulin LISPRO 300 UNITS/3 ML VIAL SQ SCH (21:00)
[2018-04-01] MEDS: VORTIOXETINE HYDROBROMIDE 20 MG PO SCH (22:25)
[2018-04-02] MEDS: Doxycycline 100 MG in 0.9 % Sodium Chloride Mini Bag 100 ML IVPB SCH ×2 (01:13→12:52)
[2018-04-02] MEDS: methylPREDNISolone 125 MG/2 ML VIAL IVP SCH ×2 (04:14→12:51)
[2018-04-02] MEDS: *HR* OxyCODONE Immed Rel 5 MG TABLET PO PRN ×2 (04:20→12:53)
[2018-04-02 04:43] LABS: Hematocrit 34.3 % (35.3-44.9); Hemoglobin 10.8 g/dL (11.5-15.4); Mean Corpuscular HGB Conc 31.5 g/dL (31.6-35.5); Mean Corpuscular Hemoglobin 24.5 pg (28.0-33.3); Mean Platelet Volume 10.4 fL (9.4-12.4); Nucleated Red Blood Cells 0.1 /100 WBC (0); Platelet Count 381 K/mcL (140-400); Red Cell Distribution Width 17.4 % (11.5-14.5)
[2018-04-02 05:03] LABS: Alanine Aminotransferase 31 Units/L (7-52); Albumin 3.3 g/dL (3.5-5.7); Albumin/Globulin Ratio 1.3 (1.1-2.2); Alkaline Phosphatase 99 Units/L (34-104); Aspartate Amino Transferase 12 Units/L (13-39); BUN/Creatinine Ratio 30 (6-26); Bilirubin,Total 0.2 mg/dL (0.3-1.0); Blood Urea Nitrogen 19 mg/dL (6-20); Carbon Dioxide 31 mEq/L (23-29); Chloride 97 mEq/L (98-107); Globulin 2.6 g/dL (2.4-3.5); Glucose 193 mg/dL (70-105); Lymphocytes # 3.3 K/mcL (0.6-4.6); Monocytes # 1.4 K/mcL (0.0-1.3); Osmolality,Calculated 292 (280-300); Polychromasia 1+ (Not Present); Potassium 4.3 mEq/L (3.5-5.1); Sodium 137 mEq/L (136-145); Total Protein 5.9 g/dL (6.4-8.9); eGFR For Non-African Americans > 60 (> 60)
[2018-04-02 05:04] LABS: Anisocytosis 1+ (Not Present); Microcytosis Present (Not Present); Platelet Estimate Normal (Normal)
[2018-04-02] MEDS: *HR* Heparin 5,000 UNIT/ML VIAL SQ SCH (05:57)
[2018-04-02] MEDS ORDERED: Levofloxacin 750 MG/150 ML 750 MG/150 ML BAG IVPB SCH (06:00)
[2018-04-02] MEDS: Ipratropium/Albuterol Neb 3 ML IH SCH (07:38)
[2018-04-02] MEDS: Benzonatate 100 MG CAPSULE PO PRN (08:55)
[2018-04-02] MEDS: clonazePAM 1 MG TABLET PO PRN (08:55)
[2018-04-02] MEDS: *HR* HYDROcodone/Acet 5/325 mg TABLET PO PRN (08:55)
[2018-04-02] MEDS: Sennosides/Docusate Sodium TABLET PO SCH (08:56)
[2018-04-02] MEDS: Pregabalin 50 MG CAPSULE PO SCH (08:56)
[2018-04-02] MEDS: Loratadine 10 MG TABLET PO SCH (08:56)
[2018-04-02] MEDS: Psyllium 1 PACKET POWD.PACK PO SCH (08:56)
[2018-04-02] MEDS: BuPROPion XL (24 HR) 150 MG TABLET PO SCH (08:56)
[2018-04-02] MEDS: Insulin LISPRO 300 UNITS/3 ML VIAL SQ SCH ×2 (08:58→12:52)
[2018-04-02 10:24] LABS: Estimated Average Glucose 148 mg/dl; Hemoglobin A1C 6.8 %
--- NOTE | 2018-04-02 15:00 | Discharge Summary ---
<Macho Olivia - Last Filed: 04/02/18 14:57> - NOTES TO OUTPATIENT PROVIDER Notes to Outpatient Provider: Patient transfer from [facility] for mycoplasma pneumonia. She was treated with IV antibiotics and will be discharged on doxycycline. Patient had elevated white blood cells (23) on her CBC without e vidence of worsening infection. We will order a CBC in 1 week. Orders not resulted at time of discharge: Pending orders 03/30/18 04:40 Culture,Blood [BC] Routine 04/01/18 17:56 Sputum Culture [Culture,Sputum with Gram Stain] [RM] Routine Date of Encounter: 04/02/18 Time of Encounter: 14:57 - Discharge Diagnosis (1) Mycoplasma pneumonia Priority: Primary Status: Acute Qualifiers: Laterality: left Lung location: upper lobe of lung Qualified Code(s): J15.7 - Pneumonia due to Mycoplasma pneumoniae (2) Ileus Priority: Secondary Status: Resolved (3) Anemia Priority: Secondary Status: Chronic Qualifiers: Anemia type: iron deficiency Iron deficiency anemia type: inadequate dietary iron intake Qualified Code(s): D50.8 - Other iron deficiency anemias (4) Bipolar 1 disorder Priority: Secondary Status: Chronic (5) Diabetes Priority: Secondary Status: Chronic Qualifiers: Diabetes mellitus type: type 2 Diabetes mellitus alf insulin use: without terminal makeup operator use Diabetes mellitus complication status: without complication Qualified Code(s): E11.9 - Type 2 diabetes mellitus without complications (6) H/O gastric bypass Priority: Secondary Status: Chronic (7) Lactic acidosis Priority: Secondary Status: Resolved (8) Leukocytosis Priority: Secondary Status: Acute Qualifiers: Leukocytosis type: unspecified Qualified Code(s): D72.829 - Elevated white blood cell count, unspecified (9) Patient is Christianity Priority: Secondary Status: Chronic Hospital course: Ms. Colin is a 42 year old female who was transferred from [facility] due to lactic acidosis, leukocytosis, acute respiratory failure secondary to mycoplasma pneumonia with oxygen dependency and abdominal pain/ileus. Patient had testing mycoplasma IgM positive there. Patient had a CT abdomen pelvis at [facility] positive for possible ileus/gastroenteritis with a pulse obstruction. Upon presentation to [place] patient required 2 L oxygen and was in acute respiratory distress. She was started on IV antibiotics and IV steroids. She also had poor oral intake secondary to abdominal bloating and pain. Patient was started on MiraLAX and Colace. Patient had a chest x-ray shows left upper lobe pneumonia. She was transitioned to Levaquin and doxycycline until we awaited cultures and sputum cultures from [facility]. Blood cultures and sputum cultures from [facility] were negative. While patient clinically improved including weaning off oxygen, did not qualify for oxygen and 6 minute walk test, improved lung exam. Her leukocytosis remained elevated. She also had a milk and molasses enema which resolved her constipation and her oral intake improved. Patient ate her most of her breakfast this morning. Pulmonology was consulted for evaluation mycoplasma pneumonia and reported to start tapering steroids as well as transitioned only to doxycycline. This morning patient is satting above 90% on room air, independently ambulating, tolerating her diet. She will be discharged with doxycycline for additional 10 days, steroids taper, and Tessalon Perles for coughing. She will follow-up with her PCP. She will also have a prescription for CBC to follow her white blood cells which her PCP will follow up on. Discharge discussed with: patient, family - Time Spent with Patient Total time spent providing and/or coordinating discharge services: - Discharge Medications Prescriptions: Benzonatate [Tessalon] 200 mg PO TID PRN #30 capsule PRN Reason: Cough Doxycycline Hyclate 100 mg PO BID 10 Days #20 tablet PredniSONE [Deltasone] 20 mg PO TAPER #20 tablet Home Medications: Acetaminophen [Non-Aspirin Extra Strength] 1,000 mg PO BID PRN 10/30/17 [History] Cetirizine HCl [All Day Allergy] 10 mg PO QAM 10/30/17 [History] Cyanocobalamin (Vitamin B-12) [Vitamin B12] 1,000 mcg PO DAILY 10/30/17 [History] Fluticasone Propionate Nasal [Flonase] 2 spray NS DAILY PRN 10/30/17 [History] Levothyroxine [Synthroid] 100 mcg PO QAM 10/30/17 [History] Lurasidone HCl [Latuda] 120 mg PO QPM 10/30/17 [History] Melatonin 20 mg PO HS 10/30/17 [History] Montelukast [Singulair] 10 mg PO HS 10/30/17 [History] Nystatin POWDER [Nystop] 1 appl TP TID PRN 10/30/17 [History] Ondansetron HCl [Zofran] 4 mg PO Q8HR PRN 10/30/17 [History] Polyethylene Glycol 3350 [MiraLAX] 17 gm PO DAILY PRN 10/30/17 [History] Pregabalin [Lyrica] 200 mg PO TID 10/30/17 [History] Ropinirole HCl [Requip] 6 mg PO HS 10/30/17 [History] Tizanidine HCl [Zanaflex] 4 mg PO TID PRN 10/30/17 [History] Vortioxetine Hydrobromide [Trintellix] 20 mg PO HS 10/30/17 [History] Lisinopril [Zestril] 2.5 mg PO DAILY 30 Days #30 tablet 11/01/17 [Rx] Pantoprazole Sodium [Protonix] 40 mg PO DAILY 30 Days #30 tablet. 11/01/17 [Rx] clonazePAM [Klonopin] 1 mg PO BID 03/29/18 [History] Amitriptyline [Elavil] 50 mg PO HS 03/31/18 [History] BuPROPion XL (24 HR) [Wellbutrin Xl] 150 mg PO DAILY 03/31/18 [History] Cholecalciferol (Vitamin D3) [Vitamin D3] 10,000 unit PO DAILY 03/31/18 [History] raNITIdine HCl [Zantac] 150 mg PO DAILY 03/31/18 [History] Benzonatate [Tessalon] 200 mg PO TID PRN #30 capsule 04/02/18 [Rx] Doxycycline Hyclate 100 mg PO BID 10 Days #20 tablet 04/02/18 [Rx] PredniSONE [Deltasone] 20 mg PO TAPER #20 tablet 04/02/18 [Rx] Allergies/Adverse Reactions: Allergy/AdvReac Type Severity Reaction Status Date / Time vancomycin AdvReac Unknown Kidney Verified 03/30/18 02:26 Failure oseltamivir [From Tamiflu] AdvReac Hallucinati Verified 03/31/18 13:45 ng Date of admission: 03/29/18 18:35 Primary care physician: PCP NONE Consults: 03/31/18 08:33 Consult to Nurse Navigator [CONS] Routine Comment: pneumonia 04/01/18 10:50 Consult to Pulmonology [CONS] Routine Consulting Provider: [facility] [place] Reason for Consult: Mycoplasma pneumonia Call Completed: Yes Discharging clinician: Macho Olivia Anticipated date of discharge: 04/02/18 - Constitutional Vitals: Temp Pulse Resp BP Pulse Ox 97.9 F 82 17 134/92 93 04/02/18 10:25 04/02/18 10:25 04/02/18 10:25 04/02/18 10:25 04/02/18 10:25 General appearance: Present: cooperative, mild distress, A&O X 3, pleasant, answers questions appropriately Exam: General: pleasant, without distress HEENT: Head atraumatic, normocephalic, EOMI, PERRL, absent ear discharge or trauma, Moist Mucous Membranes, uvula midline Neck: nontender to palpation, absent lymphadenopathy, Cardiovascualr: Regular rate and rhythm with no murmur, absent gallops or rubs, absent pedal edema, radial pulses 2 out of 4 Lungs: Clear to auscultation bilaterally, not in respiratory distress Abdomen: Soft nontender, nondistended positive bowel sounds, absent hepatomegaly Skin: warm and dry, absent rash, absent open wounds and nodules MSK: absent clubbing, cyanosis, joints without swelling Neuro: Cranial nerves II through XII intact, UE and LE sensation equal bilaterally, UE and LEstrength 5/5, alert oriented 3, Psych: good insight and judgment, - Patient Status Disposition: Home, Self-Care Condition: Fair Functional capacity at discharge: independent ambulation Overall status at discharge: patient is progressing back to baseline - Ambulatory Orders Ambulatory Orders: Complete Blood Count [HEME] Time Frame: 1 Week, Facility: [facility], Location: Lab - Discharge Instructions Instructions: Pneumonia (DC) Follow Up With: Jennifer Sumner CNP [Advanced Practice Nurse] - 04/07/18 11:00 am - Diet and Activity Activity: increase activity as tolerated Diet: advance to your usual diet <Amber Deluca - Last Filed: 04/02/18 18:44> Orders not resulted at time of discharge: Pending orders 03/30/18 04:40 Culture,Blood [BC] Routine 04/01/18 17:56 Sputum Culture [Culture,Sputum with Gram Stain] [RM] Routine Date of Encounter: 04/02/18 - Discharge Diagnosis (1) Diabetes Status: Chronic Qualifiers: Diabetes mellitus type: type 2 Diabetes mellitus alf insulin use: without terminal makeup operator use Diabetes mellitus complication status: without complication Qualified Code(s): E11.9 - Type 2 diabetes mellitus without co mplications (2) Bipolar 1 disorder Status: Chronic (3) Patient is Christianity Status: Chronic (4) Abdominal pain Status: Acute Qualifiers: Abdominal location: upper abdomen, unspecified Qualified Code(s): R10.10 - Upper abdominal pain, unspecified (5) Mycoplasma pneumonia Status: Acute Qualifiers: Laterality: left Lung location: upper lobe of lung Qualified Code(s): J15.7 - Pneumonia due to Mycoplasma pneumoniae (6) Leukocytosis Status: Acute Qualifiers: Leukocytosis type: unspecified Qualified Code(s): D72.829 - Elevated white blood cell count, unspecified Hospital course: Ms. Colin is a 42 year old female - Time Spent with Patient Total time spent providing and/or coordinating discharge services: Date of admission: 03/29/18 18:35 Primary care physician: PCP NONE Consults: 03/31/18 08:33 Consult to Nurse Navigator [CONS] Routine Comment: pneumonia 04/01/18 10:50 Consult to Pulmonology [CONS] Routine Consulting Provider: [facility] [place] Reason for Consult: Mycoplasma pneumonia Call Completed: Yes - Constitutional Vitals: Temp Pulse Resp BP Pulse Ox 98.1 F 84 17 146/85 94 04/02/18 15:06 04/02/18 15:06 04/02/18 15:06 04/02/18 15:06 04/02/18 15:06 - Attending Attestation I examined this patient and my medical decision-making was reviewed with the Resident Physician. I agree with the documented findings, disposition and treatment plan as described except to the extent set forth below.
[2018-04-02 15:12] VITALS: BP 146/85
== END 2018-04-02 15:46 | disposition home or self-care (01) | DRG 139 ==
LOC: SUATTDRO 18:35 → 3ANU 18:35
PROVIDERS: ADMIT Internal Medicine; ATTEND Student in an Organized Health Care Education/Training Program